=== PATIENT | male | born 1945 | race Caucasian/White ===

== ENCOUNTER 2019-09-30 13:40 | Emergency (ER) | payer MEDICARE ==
--- NOTE | 2019-09-30 15:43 | UC ---
Hip/Pelvis Pain - HPI Summary HPI Summary: 74-year-old male coming in with a chief complaint of left hip pain. Patient slipped and fell on the ice this morning. It pain right away in the left hip. Hip hurts anytime he tries to move it or tries to put weight on it. Been using crutches at home but still has quite a bit of pain. No complaint of weakness or numbness. No complaint any other injury. - History Of Current Complaint Chief Complaint: UCBackPain Stated Complaint: HIP INJURY Time Seen by Provider: 09/30/19 15:29 Pain Intensity: 2 - Allergies/Home Medications Allergies/Adverse Reactions: Allergies Allergy/AdvReac Type Severity Reaction Status Date / Time No Known Allergies Allergy Verified 09/30/19 14:15 Home Medications: Home Medications Cyanocobalamin (Vitamin B-12) [Vitamin B-12] 1 tab PO DAILY 09/30/19 [History Confirmed 09/30/19] Ibuprofen 1 tab PO ONCE PRN 09/30/19 [History Confirmed 09/30/19] PMH/Surg Hx/FS Hx/Imm Hx Previously Healthy: Yes - Surgical History Surgical History: Yes Surgery Procedure, Year, and Place: prostatectomy-as recorded by son ema. widsom teeth - Family History Known Family History: Positive: None - Social History Alcohol Use: Rare Substance Use Type: None Smoking Status (MU): Never Smoked Tobacco - Immunization History Most Recent Influenza Vaccination: 2014 Most Recent Tetanus Shot: unknown Most Recent Pneumonia Vaccination: 10/12/15 Review of Systems All Other Systems Reviewed And Are Negative: Yes Constitutional: Positive: Negative Skin: Positive: Negative Eyes: Positive: Negative ENT: Positive: Negative Respiratory: Positive: Negative Cardiovascular: Positive: Negative Gastrointestinal: Positive: Negative Motor: Positive: Other - SEE HPI Neurovascular: Positive: Negative Musculoskeletal: Positive: Other: - SEE HPI Neurological: Positive: Negative Psychological: Positive: Negative Is Patient Immunocompromised?: No Physical Exam Triage Information Reviewed: Yes Appearance: Well-Appearing, Well-Nourished, Pain Distress - MILD WITH LEFT HIP ROM AND EXAM Vital Signs: Initial Vital Signs Temp 98.5 F 09/30/19 14:08 Pulse 116 09/30/19 14:08 Resp 18 09/30/19 14:08 BP 135/84 09/30/19 14:08 Pulse Ox 95 09/30/19 14:08 Vital Signs Reviewed: Yes Eye Exam: Normal Eyes: Positive: Conjunctiva Clear Neck: Positive: Supple Respiratory: Positive: No respiratory distress Musculoskeletal: Positive: Other: - Left hip is tender to palpation. Patient has pain with range of motion of the left hip. No sensation of the left leg. Neurological: Positive: Alert Psychological: Positive: Age Appropriate Behavior Skin Exam: Normal Hip Injury Course/Dx - Course Course Of Treatment: Critical Care Clinical Nurse Specialist: Salvador Waller Daniel ([id number]) Stator Connector: ARNAUD ( ARNAUD) Report Date: 09/30/2019 14:49:00 Report Status: Final ====== Start of Report Content Patient Name: CANDI FARRIS Medical Record#: [id number] Ordering Physician: Maico Jose MD Acct.#: [id number] : Age: 74 Sex: M Location: [facility] Exam Date: 09/30/191448 ADM Status: REG ER Order Information: HIP LEFT 2 VIEWS AND PELVIS Accession Number: [id number] CPT: 64107 HISTORY: PAIN S/P FALL . COMPARISONS: None relevant available at the time of dictation. VIEWS: 3, Frontal view of the pelvis with frontal and frog-leg views of the left hip FINDINGS: BONE DENSITY: There is diffuse osteopenia. BONES: There is impacted and slightly displaced left subcapital femoral neck fracture. 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 ALIGNMENT: There is no dislocation. SOFT TISSUES: Unremarkable. OTHER FINDINGS: Degenerative changes are noted of the spine. IMPRESSION: SUBCAPITAL LEFT FEMORAL NECK FRACTURE. OSTEOPENIA. OSTEOPOROSIS ____ <Electronically signed by Salvador Waller MD in OV> 09/30/191535 Dictated By: Salvador Waller MD Dictated Date/Time: 09/30/191534 Transcribed Date/Time: 09/30/191534 Copy to: CC:Elena Ho MD; Maico Jose MD Imaging - [facility] Imaging - [facility] Imaging - [facility] [address] [facility] [address] [facility] [address] [place], [place] [id number] [place] [id number] [place] [id number] ph [phone]) ph ([phone]) ph ([phone]) End of Report Content I discussed the x-rays with the patient and his . Also discussed it with the orthopedist on-call Dr. Richardson. Dr. Richardson recommended evaluation emergency department to include a CT of the hip. I discussed all this with the patient and his they declined transport by ambulance they preferred to go by POV. - Differential Dx/Diagnosis Provider Diagnosis: Closed left hip fracture Discharge ED - Sign-Out/Discharge Documenting (check all that apply): Patient Departure All imaging exams completed and their final reports reviewed: Yes - Discharge Plan Condition: Stable Disposition: HOME-RECOMMEND TO ED Patient Education Materials: Hip Fracture (ED) Referrals: Elena Ho MD [Primary Care Provider] - Bernardo Richardson MD [Medical Doctor] - Additional Instructions: GO DIRECTLY TO THE EMERGENCY DEPARTMENT FOR FURTHER EVALUATION AND CARE OF YOUR LEFT HIP FRACTURE. DR RICHARDSON, ORTHOPEDICS, RECOMMENDED A CT OF YOUR LEFT HIP. - Billing Disposition and Condition Condition: STABLE Disposition: Home-Recommend to ED
[2019-09-30 16:40] VITALS: BP 132/84
== END 2019-09-30 16:27 | disposition home health service (06) ==
LOC: UCEAST 13:40
DX: S72.002A Fracture of unspecified part of neck of left femur, initial encounter for closed fracture (principal); W00.0XXA Fall on same level due to ice and snow, initial encounter; Y92.9 Unspecified place or not applicable
CPT/HCPCS: 99212; G0463

== ENCOUNTER 2019-09-30 17:34 | Inpatient (IN) | payer MEDICARE ==
--- NOTE | 2019-09-30 18:26 | ED ---
Lower Extremity - HPI Summary HPI Summary: 74 year old M presenting to [facility] from [facility] accompanied by family members complains of left hip pain rated 2/10 in severity after slipping on ice and falling on to his left hip while shoveling snow on a sloped icy driveway at 11:00 today 09/30. No trauma to the head, rib cage, or neck. Was able to stand up on his own after the fall but with difficulty. Needed help walking back into the house. No nausea/vomiting, neck pain, LOC, SOB, dizziness. Symptoms aggravated by movement, weight bearing, standing. Symptoms alleviated by nothing. Patient had x-ray done at [facility] which showed left femoral neck fracture. - History of Current Complaint Chief Complaint: EDHipPelvisInjury Stated Complaint: LEFT HIP PAIN PER PT Time Seen by Provider: 09/30/19 18:13 Hx Obtained From: Patient Mechanism Of Injury: Other - slipping on ice and falling on to his left hip Onset of Pain: Immediate Onset/Duration: Hours Severity Currently: Mild Pain Intensity: 2 Pain Scale Used: 0-10 Numeric Timing: Constant Associated Signs And Symptoms: Positive: Negative - nausea/vomiting, neck pain , LOC, SOB, dizziness Aggravating Factor(s): Standing, Movement, Weight Bearing Alleviating Factor(s): Nothing - Allergies/Home Medications Allergies/Adverse Reactions: Allergies Allergy/AdvReac Type Severity Reaction Status Date / Time No Known Allergies Allergy Verified 09/30/19 17:37 PMH/Surg Hx/FS Hx/Imm Hx Endocrine/Hematology History: Denies: Hx Diabetes, Hx Thyroid Disease Cardiovascular History: Denies: Hx Congestive Heart Failure, Hx Hypertension, Hx Pacemaker/ICD Respiratory History: Denies: Hx Asthma, Hx Chronic Obstructive Pulmonary Disease (COPD) GI History: Denies: Hx Ulcer History: Denies: Hx Renal Disease Sensory History: Reports: Hx Contacts or Glasses Denies: Hx Hearing Aid Opthamlomology History: Reports: Hx Contacts or Glasses Neurological History: Reports: Other Neuro Impairments/Disorders - syncopy 10-08 Psychiatric History: Denies: Hx Panic Disorder - Cancer History Cancer Type, Location and Year: prostate - Surgical History Surgery Procedure, Year, and Place: prostatectomy-as recorded by horace boo. widsom teeth - Immunization History Date of Tetanus Vaccine: Unk Date of Influenza Vaccine: Fall 2014 Infectious Disease History: No Infectious Disease History: Denies: Hx Hepatitis, Hx Human Immunodeficiency Virus (HIV), Traveled Outside the [place] in Last 30 Days - Family History Known Family History: Negative: Diabetes - Social History Alcohol Use: Rare Substance Use Type: Reports: None Hx Tobacco Use: No Smoking Status (MU): Never Smoked Tobacco Review of Systems Negative: Shortness Of Breath Negative: Vomiting, Nausea Musculoskeletal: Negative - neck pain Positive: Other - left hip pain Neurological: Negative - LOC, dizziness All Other Systems Reviewed And Are Negative: Yes Physical Exam - Summary Physical Exam Summary: Constitutional: Well-developed, Well-nourished, Alert. (-) Distressed Skin: Warm, Dry HENT: Normocephalic; Atraumatic Eyes: Conjunctiva normal Neck: Musculoskeletal ROM normal neck. (-) JVD, (-) Stridor, (-) Tracheal deviation Cardio: Rhythm regular, rate normal, Heart sounds normal; Intact distal pulses; The pedal pulses are 2+ and symmetric. Radial pulses are 2+ and symmetric. (-) Murmur Pulmonary/Chest wall: Effort normal. (-) Respiratory distress, (-) Wheezes, (-) Rales Abd: Soft, (-) tenderness, (-) Distension, (-) Guarding, (-) Rebound Musculoskeletal: Upper extremities are normal, C-spine is normal. Palpation of pelvis is non-tender, no pelvic instability. There is mild pain in anterior superior thigh. There is pain with internal/external rotation of left hip. He is neurovascularly in tact with good bilateral posterior tibular pulses and normal capillary refill. Lymph: (-) Cervical adenopathy Neuro: Alert, Oriented x3 Psych: Mood and affect Normal Triage Information Reviewed: Yes Vital Signs On Initial Exam: Initial Vitals Temp Pulse Resp BP Pulse Ox 98.3 F 113 16 152/82 97 09/30/19 17:35 09/30/19 17:35 09/30/19 17:35 09/30/19 17:35 09/30/19 17:35 Vital Signs Reviewed: Yes Procedures - Sedation Patient Received Moderate/Deep Sedation with Procedure: No Diagnostics - Vital Signs Vital Signs Temp Pulse Resp BP Pulse Ox 09/30/19 17:35 98.3 F 113 16 152/82 97 - Laboratory Result Diagrams: 09/30/19 18:50 09/30/19 19:55 Lab Statement: Any lab studies that have been ordered have been reviewed, and results considered in the medical decision making process. - Radiology CXR Radiology Interpretation Completed By: ED Physician Summary of Radiographic Findings: Right pleural effusion. Otherwise, no obvious acute process. Pending official report. - CT Pelvis CT Interpretation Completed By: Radiologist Summary of CT Findings: 1. Acute traumatic left femoral neck fracture. 2. Left inguinal hernia. No strangulation. ED physician has reviewed this report. Lower Extremity Course/Dx - Course Course Of Treatment: 74 year old M from [facility] complains of left hip pain after slipping on ice and falling on to his left hip while shoveling snow on a sloped icy driveway at 11:00 today 09/30. No trauma to the head, rib cage, or neck. Had x-ray done at [facility] which showed left femoral neck fracture. Physical exam findings: Upper extremities are normal, C-spine is normal. Palpation of pelvis is non-tender, no pelvic instability. There is mild pain in anterior superior thigh. There is pain with internal/external rotation of left hip. He is neurovascularly in tact with good bilateral posterior tibular pulses and normal capillary refill. Bloodwork without any significant abnormalities except for WBC 12.2, RBC 5.73, platelet count 125, MPV 7.1, absolute neuts 10.5, absolute lymphs 0.9, monos 0.9, BUN/creatinine 20.4. CXR shows right pleural effusion, otherwise no obvious acute process. Pelvis CT shows, per radiologist: 1. Acute traumatic left femoral neck fracture. 2. Left inguinal hernia. No strangulation. Patient declined pain medications when offered. Spoke with Dr. Castillo, hospitalist, who agrees to admit patient. The patient will be admitted to the hospitalist. Dx left hip fracture. - Diagnoses Provider Diagnoses: Hip fracture, left - Physician Notifications Discussed Care Of Patient With: Chantelle Castillo Time Discussed With Above Provider: 19:00 Instructed by Provider To: Other - Dr. Castillo, hospitalist, agrees to admit patient Discharge ED - Sign-Out/Discharge Documenting (check all that apply): Patient Departure - ADMIT - Discharge Plan Condition: Stable Disposition: ADMITTED TO [facility] - Billing Disposition and Condition Condition: STABLE Disposition: Admitted to [facility] - Attestation Statements Document Initiated by Scribe: Yes Documenting Scribe: Doris Torres Provider For Whom Scribe is Documenting (Include Credential): Renée Slade MD Scribe Attestation: I, Doris Torres, scribed for Renée Haas MD on 09/30/19 at 6385. Scribe Documentation Reviewed: Yes Provider Attestation: The documentation as recorded by the scribe, Doris Torres accurately reflects the service I personally performed and the decisions made by me, Renée Haas MD Status of Scribe Document: Viewed
[2019-09-30 18:57] LABS: ABS Lymphocytes 0.9 10^3/ul (1.0-4.8); ABS Monocytes 0.9 10^3/ul (0-0.8); ABS Neutrophils 10.5 10^3/ul (1.5-7.7); Eosinophil % 0.1 %; Hematocrit 51 % (42-52); Hemoglobin 16.6 g/dL (14.0-18.0); Lymphocyte % 7.1 %; Mean Corpuscular HGB Conc 33 g/dL (31-36); Mean Corpuscular Hemoglobin 29 pg (27-31); Mean Corpuscular Volume 88 fL (80-94); Mean Platelet Volume 7.1 fL (7.4-10.4); Nucleated Red Blood Cells % 0.1; Platelet Count 125 10^3/uL (150-450); Red Blood Count 5.73 10^6 /uL (4.18-5.48); Red Cell Distribution Width 14 % (10-15); White Blood Count 12.2 10^3/uL (3.5-10.8)
[2019-09-30 19:02] LABS: INR 0.94 (0.82-1.09)
[2019-09-30 19:12] LABS: ALT 24 U/L (7-52); Albumin 4.3 g/dL (3.2-5.2); Albumin/Globulin Ratio 1.4 (1-3); Alkaline Phosphatase 81 U/L (34-104); BUN/Creatinine Ratio 20.4 (8-20); Blood Urea Nitrogen 19 mg/dL (6-24); CO2 Carbon Dioxide 26 mmol/L (22-32); Calcium 9.8 mg/dL (8.6-10.3); Chloride 102 mmol/L (101-111); EGFR African American 96.1 (>60); EGFR Non-African American 79.4 (>60); Globulin 3.1 g/dL (2-4); Glucose 95 mg/dL (70-100); Sodium 136 mmol/L (135-145); Total Protein 7.4 g/dL (6.4-8.9)
[2019-09-30 19:40] LABS: Anion Gap 8 mmol/L (2-11)
[2019-09-30] MEDS ORDERED: Morphine INJ* 2 MG/ML 1 ML SYRINGE (TWO MG - NEW SYRINGE VERSION) IV PRN (20:33)
[2019-09-30] MEDS ORDERED: Polyethylene Glycol 3350* 17 GM PACKET PO PRN (20:42)
[2019-09-30] MEDS ORDERED: Senna TAB 8.6 mg* TAB PO PRN (20:42)
[2019-09-30] MEDS ORDERED: Magnesium Hydroxide LIQ* 30 ML UDC PO PRN (20:42)
[2019-09-30] MEDS ORDERED: Heparin VIAL(*) 5000 UNITS/ML VIAL (FIVE THOUSAND) SUBCUT SCH (22:00)
--- NOTE | 2019-09-30 22:10 | HP ---
HISTORY AND PHYSICAL: DATE OF ADMISSION: 09/30/19. PRIMARY CARE PROVIDER: Dr. Ho. ATTENDING PHYSICIAN WHILE IN THE HOSPITAL: Dr. Concepción Mcdonough * (dictated by Natalie Kay, JACK). HISTORY OF PRESENT ILLNESS: Mr. Wallace is a 74-year-old male with past medical history significant for history of prostate cancer in 2005, status post radical prostatectomy and allergic rhinitis, who presented to the emergency room after a mechanical fall. The patient reports that he was clearing snow out of his driveway and was going down the slope where he hit an icy area in the driveway. He reports that he lost his footing, slipping on the ice, landing on his left hip. The patient reported that he had immediate pain in his left hip after the fall. He does report that he used a broom as a crutch to walk back to his house. Due to the pain in his left hip, he presented to [facility] for further evaluation. At [facility], they did a hip x- ray, which showed a subcapital left femoral neck fracture. Due to these findings, the patient was sent to the emergency room for further evaluation and admission for treatment. While in the emergency room, the patient had routine lab work drawn. He was found to have mild leukocytosis with white count of 12.2. He has a platelet count of 125,000. Due to his left hip fracture, Hospital Medicine was asked to see and evaluate for admission. PAST MEDICAL HISTORY: Significant for: 1. History of prostate cancer. 2. Allergic rhinitis. 3. History of cellulitis to the right leg in 2005. 4. History of lumbar disk disease. PAST SURGICAL HISTORY: 1. [place] teeth. 2. Radical prostatectomy. HOME MEDICATIONS: 1. Vitamin B12 1000 mcg p.o. daily. 2. Multivitamin 1 tablet p.o. daily. 3. Xyzal 5 mg p.o. daily. 4. Fluticasone 2 sprays both nares daily. 5. Vitamin D 1000 units p.o. daily. 6. Astepro 1 spray nares b.i.d. ALLERGIES: LEVAQUIN and SULFA. FAMILY HISTORY: Mother at the age of 77, has a presumed OR. No reported history of diabetes or cancer within the family. Father lived to be 98. SOCIAL HISTORY: The patient denies any tobacco or illicit drug use. He does report rare alcohol use. 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 He is . He lives with his . Surrogate decision maker in the event he is unable to make his own decisions is his . He is a full code. REVIEW OF SYSTEMS: The patient denies any fever, chills, unintended weight loss , chest pain, or edema. Denies any cough, hemoptysis, shortness of breath. No nausea, vomiting, diarrhea, or abdominal pain. Denies any gross hematuria or dysuria. Denies any focal weakness, sensory loss, visual complaints, dysphagia. He does complain of left hip pain. Denies LOC, head injury, neck or back injury or pain. Denied any dizziness of lightheadedness prior to fall. No rashes, lesions, open sores. Denies any psychosis or anxiety. PHYSICAL EXAMINATION GENERAL: At this time, Rodrigo is a 74-year-old male. He is alert and oriented , resting on the stretcher in the emergency room. He is in no acute distress. VITAL SIGNS: Blood pressure 152/82, heart rate is 106, respirations are 16, O2 saturation 97%, temperature 98.3. HEENT: Head is atraumatic, normocephalic. Eyes: EOMs are intact. Sclerae anicteric and not pale. Pupils equal and reactive light. Oral mucosa appeared to be moist. NECK: Supple. no c-spine tenderness with palpation. LUNGS: Clear to auscultation bilaterally. No wheezes, rales or rhonchi. CARDIAC: S1, S2. Regular rate and rhythm. No murmurs, rubs, or gallops. He is tachycardic. ABDOMEN: Soft and nontender. Bowel sounds are present x4. EXTREMITIES: He is able to move all 4 extremities. Sensation is intact to lower extremities. Pedal pulses are +2 bilaterally. There is no clubbing or cyanosis. NEUROLOGIC: He is awake, alert, oriented x3. Speech is clear. Thought process is intact. There are no gross focal deficits. SKIN: Intact. LABORATORY DATA AND DIAGNOSTIC STUDIES: WBCs are 12.2, RBCs 5.73, hemoglobin 16.6, hematocrit is 51, platelet count 125,000. INR was 0.94. Sodium 136, potassium pending, chloride 102, carbon dioxide 26, anion gap 8, BUN is 19, creatinine 0.93, glucose is 95. AST is pending. ALTs are 24. Alkaline phosphatase is 81. Calcium is 9.8. Urine is currently pending. Hip x-ray that showed subcapital left hip fracture. ASSESSMENT AND PLAN: Mr. Wallace is a 74-year-old male with history of prostate cancer, status post prostatectomy and allergic rhinitis, who presented to the emergency room after a fall at home sustaining a left hip fracture. He will be admitted inpatient for: 1. Left hip fracture. This is related to a mechanical fall, slipping on ice. Management per Orthopedics. I will give the patient morphine q.4 hours as needed for severe pain. He can have oxycodone 1 tablet every 4 hours as needed for moderate pain and Tylenol as needed for mild pain. He will be placed on bed rest. I will place him on SCDs. I will place him on normal saline 75 cc an hour after the patient is n.p.o. I have contacted Dr. Gonsalves from Orthopedics, who will see the patient in consultation in the a.m. 2. Allergic rhinitis. The patient will continue fluticasone as previously prescribed. 3. DVT prophylaxis. I will place him on SCDs. If the patient does not go to surgery tomorrow, we can place him on heparin subcu until surgery. 4. FEN. He will have a regular diet and be n.p.o. after midnight. 5. CODE STATUS: full code TIME SPENT: Time spent on this admission was 60 minutes, greater than half that time was spent at the bedside reviewing events leading thus far to his hospitalization, performing physical exam, and reviewing my plan of care. I have discussed this with my attending, Dr. Concepción Mcdonough; she is in agreement with my plan. NATALIE KAY, BODY ART TECHNICIAN [id number]/[facility] #: [id number] ZULEYMA
[2019-09-30] MEDS: Docusate CAP* 100 MG PO SCH (22:57)
[2019-09-30] MEDS: oxyCODONE/Acetamin 5/325 MG* TAB PO PRN (22:57)
[2019-09-30 23:05] LABS: Potassium Redraw 3.9 mmol/L (3.5-5.0)
[2019-10-01] MEDS: oxyCODONE/Acetamin 5/325 MG* TAB PO PRN ×3 (03:55→12:52)
[2019-10-01] MEDS: NS 0.9% 1000 ML** 1,000 ML IV SCH ×2 (04:56→18:23)
[2019-10-01] MEDS ORDERED: Ondansetron ODT TAB* 4 MG PO ONE (06:00)
[2019-10-01] MEDS ORDERED: Dexamethasone TAB* 4 MG PO ONE (06:00)
[2019-10-01] MEDS ORDERED: Famotidine IV* 10 MG/ML 2 ML (20 mg) IV ONE (06:00)
[2019-10-01 06:04] LABS: ABS Lymphocytes 1.7 10^3/ul (1.0-4.8); ABS Monocytes 1.2 10^3/ul (0-0.8); ABS Neutrophils 8.8 10^3/ul (1.5-7.7); Eosinophil % 0.3 %; Hematocrit 45 % (42-52); Hemoglobin 15.1 g/dL (14.0-18.0); Lymphocyte % 14.6 %; Mean Corpuscular HGB Conc 34 g/dL (31-36); Mean Corpuscular Hemoglobin 29 pg (27-31); Mean Corpuscular Volume 86 fL (80-94); Mean Platelet Volume 7.2 fL (7.4-10.4); Platelet Count 166 10^3/uL (150-450); Red Blood Count 5.22 10^6 /uL (4.18-5.48); Red Cell Distribution Width 13 % (10-15); White Blood Count 11.8 10^3/uL (3.5-10.8)
[2019-10-01 06:15] LABS: BUN/Creatinine Ratio 17.6 (8-20); EGFR African American 98.5 (>60); EGFR Non-African American 81.4 (>60); Potassium 3.9 mmol/L (3.5-5.0)
[2019-10-01 06:21] LABS: INR 1.1 (0.82-1.09)
[2019-10-01 06:46] LABS: TSH (Thyroid Stimulating Horm) 3.07 mcIU/mL (0.34-5.60)
[2019-10-01] MEDS: Docusate CAP* 100 MG PO SCH (08:00)
[2019-10-01] MEDS: Fluticasone NASAL SPRAY 50MCG* 16 gm SPRAY BTL BOTH NARES SCH (08:01)
--- NOTE | 2019-10-01 08:19 | CONSULT ---
Consult Consult: Dictated note to follow. Community ambulator, active, without baseline hip pain with mechanical fall and minimally displaced, impacted L femoral neck fracture. Discussed possible treatments, including cannulated screws and total hip arthroplasty. We decided on cannulated screws. To the OR for ORIF with cannulated screws left hip femoral neck. NPO. Optimized by medicine. Surgery was hoped for today, although there may be limited OR room availability which may force surgery to be delayed until tomorrow.
--- NOTE | 2019-10-01 11:09 | PN ---
Subjective Date of Service: 10/01/19 Interval History: Patient reports unable to get comfortable in bed. Denies chest pain or shortness of breath. Denies fever or chills denies abd pain n/v/d. Surgery pending for today EKG - reviewed showed sinus tachycardia rate 100 , no ST elevation or depressions. RCRI - Patient has a score of 0 giving him a 3.9% risk at 30 days of , cardiac arrest or ND. The patient is able to climb stair and shovel snow without the development of chest pain or shortness of breath. The patient does not need any further workup prior to surgery. The patient is an acceptable candidate for surgery at this time. Family History: Unchanged from Admission Social History: Unchanged from Admission Past Medical History: Unchanged from Admission Objective Active Medications: Acetaminophen (Tylenol Tab*) 650 mg PO Q4H PRN PRN Reason: MILD PAIN or TEMP > 100.4 Docusate Sodium (Colace Cap*) 100 mg PO BID [facility] Last Admin: 10/01/19 08:00 Dose: 100 mg Fluticasone Propionate (Flonase Nasal [place] 50mcg*) 2 spray BOTH NARES DAILY [facility] Last Admin: 10/01/19 08:01 Dose: 2 spray Sodium Chloride (Ns 0.9% 1000 Ml) 1,000 mls @ 75 mls/hr IV PER RATE [facility] Last Admin: 10/01/19 04:56 Dose: 75 mls/hr Magnesium Hydroxide (Milk Of Magnesia Liq*) 30 ml PO BID PRN PRN Reason: CONSTIPATION Morphine Sulfate (Morphine Inj (Syringe))*) 2 mg IV Q4H PRN PRN Reason: PAIN - SEVERE Oxycodone/Acetaminophen (Percocet 5/325 Tab*) 1 tab PO Q4H PRN PRN Reason: PAIN - MODERATE Last Admin: 10/01/19 08:00 Dose: 1 tab Polyethylene Glycol/Electrolytes (Miralax*) 17 gm PO DAILY PRN PRN Reason: CONSTIPATION Senna (Senokot 8.6 Mg Tab*) 1 tab PO BEDTIME PRN PRN Reason: CONSTIPATION Vital Signs - 8 hr 10/01/19 10/01/19 10/01/19 03:55 07:48 07:51 Temperature 98.4 F Pulse Rate 88 Respiratory 18 16 16 Rate Blood Pressure 124/83 (mmHg) O2 Sat by Pulse 93 Oximetry 10/01/19 10/01/19 10/01/19 08:00 08:30 10:44 Temperature Pulse Rate Respiratory 20 20 18 Rate Blood Pressure (mmHg) O2 Sat by Pulse Oximetry Oxygen Devices in Use Now: None Appearance: Appear comfortable resting in bed , no acute distess Ears/Nose/Mouth/Throat: NL Teeth, Lips, Gums, Mucous Membranes Moist Neck: NL Appearance and Movements; NL JVP, Trachea Midline Respiratory: Symmetrical Chest Expansion and Respiratory Effort Cardiovascular: NL Sounds; No Murmurs; No JVD, No Edema Abdominal: NL Sounds; No Tenderness; No Distention Extremities: No Edema, No Clubbing, Cyanosis Skin: No Rash or Ulcers Neurological: Alert and Oriented x 3, NL Muscle Strength and Tone Nutrition: - - NPO for surgery Result Diagrams: 10/01/19 05:26 10/01/19 05:26 Assess/Plan/Problems-Billing Assessment: Mr. Wallace is a 74 y.o male with no significant past medical history who presented to the ER with left hip pain after a mechanical fall found to have a fractured left hip - Patient Problems (1) Hip fracture, left Current Visit: Yes Status: Acute Code(s): S72.002A - FRACTURE OF UNSP PART OF NECK OF LEFT FEMUR, INIT SNOMED Code(s): 302637131 Comment: possible OR today for pinning - DVT prop per ortho - bowel medicaitons - pain managment - PT/OT per orthopedics (2) Allergic rhinitis Current Visit: Yes Status: Acute Code(s): J30.9 - ALLERGIC RHINITIS, UNSPECIFIED SNOMED Code(s): 71629978 Comment: continue flonase (3) DVT prophylaxis Current Visit: Yes Status: Acute Code(s): Z29.9 - ENCOUNTER FOR PROPHYLACTIC MEASURES, UNSPECIFIED SNOMED Code(s): 376015548 Comment: scd's (4) Full code status Current Visit: Yes Status: Acute Code(s): Z78.9 - OTHER SPECIFIED HEALTH STATUS SNOMED Code(s): 601365549 Status and Disposition: inpatient - pending surgery
[2019-10-01] MEDS ORDERED: Buffered Lidocaine 1% SYRIN* 1 ML/SYRINGE INTRADERM ONE (13:40)
--- NOTE | 2019-10-01 14:24 | CONS ---
CONSULTATION NOTE: DATE OF CONSULT: 10/01/19 REASON FOR CONSULT: Left hip fracture. HISTORY OF PRESENT ILLNESS: The patient is a 74-year-old man, active, community ambulator without as sist, who lives at home with his , who presented first to convenient care and then the emergency room yesterday, 09/30/19 with a left hip fracture. The patient does not have any left hip pain at baseline, although he has noted getting some stiffness in bilateral hips through the years. The patient is very active. 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 Yesterday, the patient was clearing snow out of his driveway. He was walking on a slope, hit some ic e, lost his footing, slipped and fell. He landed on his left hip. He had pain immediately about the left hip. He was able to get up, used his broom as a crutch and walked into the house. The patient went to [facility] where hip x-rays demonstrated a left femoral neck fracture. I wa s contacted as I was on-call. I instructed the patient to go to [facility]'s Emergency Room. A CT scan wou ld be required to assess fracture site displacement. Emergency room then contacted me last night when the patient was there and everyone was comfortable w ith me seeing the patient this morning. He was admitted to the hospitalist service. He was optimize d and cleared for surgery last night. He was made nothing to eat after midnight. The patient states he has much left hip pain now. He is not moving the left hip or minimally moving it to minimize his pain while in bed. He has been taking narcotics for pain control. The patient was noted in the emergency room to have a white blood cell count of 12.2. PAST MEDICAL HISTORY: History of prostate cancer, allergic rhinitis, history of cellulitis of right leg in 2005, history of lumbar spine degenerative disk disease. PAST SURGICAL HISTORY: [place] teeth extraction, radical prostatectomy. MEDICATIONS: 1. Vitamin B12. 2. Multivitamin. 3. Xyzal. 4. Fluticasone. 5. Vitamin D. 6. Astepro. ALLERGIES: LEVAQUIN and SULFA. FAMILY HISTORY: Noncontributory. 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 He is . No baseline left hip pain. No assist device. Lives with his . His surrogate decision maker in the event he is unable to make his own decisions is his . Full code. REVIEW OF SYSTEMS: The patient describes left hip pain. A 14-point review of systems was otherwise negative. PHYSICAL EXAM: No acute distress. Nontoxic appearing. Alert and oriented. Appropriate mood and aff ect, appropriate dress and hygiene. Vital signs this morning about the time of my visit with the patient were body temperature 98.4 degre es Fahrenheit, pulse 88, blood pressure 124/83, oxygen saturation 93% on room air, and respiratory ra te 16. Left lower extremity exam reveals some mild soft tissue swelling about the left hip. Pain with any p assive range of motion of the left hip, so I minimized this. Neurovascularly intact distally with the patient able to flex and extend his toes and foot, full sensation distally, and the foot was warm an d well perfused. DIAGNOSTIC STUDIES/LAB DATA: White blood cell count this morning was 11.8 with a neutrophil percenta ge of 74.5%. White blood cell count yesterday had been 12.2. INR today is 1.1. Chemistries were nor mal. I requested a urinalysis, but I do not see that has yet returned. Imaging: X-rays of the left hip obtained yesterday in [facility] were reviewed by me. These sh ow a fracture of the left femoral neck. There is some minimal displacement and impaction noted. I m easured there to be on x-ray approximately 3 mm of medialization distal to the fracture site. Some c lear valgus impaction. No clear anterior apex angulation or other deformity present on other images. I reviewed the CT scan obtained yesterday at [facility]. There is no sagittal plane angular deformity which was nice to see. There is some impaction visible clearly. There is just a tiniest amount of step-of f. I again measured it at about 3 mm of medial translation distally. Excellent reduction in the axi al and sagittal slices, but just a little bit of displacement in the coronal slices. ASSESSMENT: Left hip fracture, femoral neck, minimally displaced. PLAN: 1. I discussed with the patient the anatomy of his fracture as well as hip fractures in general. 2. I spoke about possible surgical options for his injury. This included cannulated screws, bipolar hemiarthroplasty, or total hip arthroplasty. I told him that his best options were either cannulate d screw fixation or total hip arthroplasty. I did not think hemiarthroplasty would be a good option given his high activity level. 3. I spoke at length about the pros and cons of cannulated screw fixation as well as total hip arthr oplasty. I also spoke about postoperative recovery process and restrictions. 4. The patient's preference was for cannulated screw fixation. 5. 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 He has just a tiniest amount of displacement. I believe he will have excellent scre w fixation with surgery. However, there is risk of nonhealing or avascular necrosis. The patient and I discussed risks and potential complications of surgery, both surgical and medical possible complic ations. 6. To the operating room for open reduction and internal fixation left hip femoral neck with cannula dario screws. 7. The patient will be maintained n.p.o. He has been optimized and cleared by the medicine service. We will hopefully await a urinalysis. 8. Tentatively, the patient will go to the operating room this evening. There appears to be a logja m in the operating room, so if the operation will be delayed until a time late tonight, I would certa inly consider delaying surgery until tomorrow. [id number]/[facility] #: [id number]
[2019-10-01 17:40] LABS: Urine Appearance Cloudy; Urine Bilirubin Negative (Negative); Urine Blood Negative (Negative); Urine Color Yellow; Urine Glucose Negative (Negative); Urine Ketones Trace (Negative); Urine Nitrite Negative (Negative); Urine Protein Negative (Negative); Urine Specific Gravity 1.018 (1.010-1.030); Urine Urobilinogen Negative (Negative)
[2019-10-01] MEDS ORDERED: KETAMINE HCL* 50 MG/ML 10 ML VIAL ONE (19:15)
[2019-10-01] MEDS ORDERED: Midazolam* 1 MG/ML 5 ML VIAL (5 MG) ONE (19:15)
[2019-10-01] MEDS ORDERED: fentaNYL* 50 MCG/ML 2 ML VIAL (100 MCG VIAL) ONE (19:15)
[2019-10-01] MEDS ORDERED: Dexamethasone TAB* 4 MG ONE (19:29)
[2019-10-01] MEDS ORDERED: Ondansetron ODT TAB* 4 MG ONE (19:29)
[2019-10-01] MEDS ORDERED: Famotidine IV* 10 MG/ML 2 ML (20 mg) ONE (19:29)
[2019-10-01] MEDS ORDERED: ceFAZolin 2 GM in NS PREMIX(*) 2 GM/100 ML BAG IVPB ONE (19:56)
[2019-10-01] MEDS ORDERED: Bupivacaine 0.25% EPI 200,000* 30 ML SDV ONE (20:46)
[2019-10-01] MEDS ORDERED: Lactated Ringers 1000 ML Bag* 1,000 ML IV SCH (21:00)
[2019-10-01] MEDS ORDERED: HYDROmorphone INJ1* 1 MG/ML SYRINGE ONE (21:37)
[2019-10-01] MEDS ORDERED: DiMENhydriNATE IV* 50 MG/ML VIAL IV PUSH PRN (21:47)
[2019-10-01] MEDS ORDERED: Naloxone* 0.4 MG/ML 1 ML VIAL IV PRN (21:47)
[2019-10-01] MEDS ORDERED: PROCHLORPERAZINE INJ 5 MG/ML 2 ML VIAL IV PRN (21:47)
[2019-10-01] MEDS ORDERED: HYDROmorphone INJ1* 1 MG/ML SYRINGE IV PRN (21:47)
[2019-10-01] MEDS ORDERED: fentaNYL* 50 MCG/ML 2 ML VIAL (100 MCG VIAL) IV PRN (21:47)
[2019-10-01] MEDS ORDERED: oxyCODONE/Acetamin 5/325 MG* TAB PO PRN (21:47)
[2019-10-01] MEDS ORDERED: EPHEDrine (Pressors)* 50 MG/ML VIAL ONE (22:09)
[2019-10-01] MEDS ORDERED: Ketorolac INJ* 30 MG/ML 1 ML VIAL ONE (22:09)
[2019-10-01] MEDS ORDERED: Propofol* 10 MG/ML 20 ML BTL ONE (22:09)
[2019-10-01] MEDS ORDERED: Lidocaine 2% PF * 5 ML VIAL ONE (22:10)
[2019-10-01] MEDS ORDERED: Phenylephrine 10 MG/ML VIAL* 1 ML VIAL ONE (22:10)
[2019-10-02] MEDS: Docusate CAP* 100 MG PO SCH ×3 (01:49→21:03)
[2019-10-02] MEDS: ceFAZolin 1 GM* X 3 DOSES POST-OP Q8H (AddVan) IVPB SCH ×6 (05:05→21:03)
[2019-10-02] MEDS ORDERED: Famotidine IV* 10 MG/ML 2 ML (20 mg) IV ONE (06:00)
[2019-10-02] MEDS ORDERED: Ondansetron ODT TAB* 4 MG PO ONE (06:00)
[2019-10-02] MEDS ORDERED: Lactated Ringers 1000 ML Bag* 1,000 ML IV SCH (06:00)
[2019-10-02] MEDS ORDERED: Dexamethasone TAB* 4 MG PO ONE (06:00)
[2019-10-02 06:11] LABS: ABS Lymphocytes 0.7 10^3/ul (1.0-4.8); ABS Monocytes 0.5 10^3/ul (0-0.8); ABS Neutrophils 8.1 10^3/ul (1.5-7.7); Hematocrit 44 % (42-52); Hemoglobin 14.8 g/dL (14.0-18.0); Lymphocyte % 7.5 %; Mean Corpuscular HGB Conc 33 g/dL (31-36); Mean Corpuscular Hemoglobin 29 pg (27-31); Mean Corpuscular Volume 86 fL (80-94); Mean Platelet Volume 7.1 fL (7.4-10.4); Platelet Count 156 10^3/uL (150-450); Red Blood Count 5.12 10^6 /uL (4.18-5.48); Red Cell Distribution Width 14 % (10-15); White Blood Count 9.4 10^3/uL (3.5-10.8)
[2019-10-02 06:25] LABS: BUN/Creatinine Ratio 18.5 (8-20); Calcium 8.5 mg/dL (8.6-10.3); EGFR African American 97.3 (>60); EGFR Non-African American 80.4 (>60); Potassium 4.3 mmol/L (3.5-5.0)
[2019-10-02] MEDS: Fluticasone NASAL SPRAY 50MCG* 16 gm SPRAY BTL BOTH NARES SCH (08:58)
--- NOTE | 2019-10-02 09:42 | PN ---
Subjective Date of Service: 10/02/19 Interval History: Patient seen and examined at bedside. Mr. Wallace is a 74 yo male, admitted for surgical repair of left hip fracture following mechanical fall. He is OOB to chair, eating breakfast. Reports he slept well, denies pain, reports good pain control. Denies fever/chills, CP, SOB , abd pain, n/v. is also at bedside. Family History: Unchanged from Admission Social History: Unchanged from Admission Past Medical History: Unchanged from Admission Objective Active Medications: Acetaminophen (Tylenol Tab*) 650 mg PO Q4H PRN PRN Reason: MILD PAIN or TEMP > 100.4 Docusate Sodium (Colace Cap*) 100 mg PO BID [facility] Last Admin: 10/02/19 08:58 Dose: 100 mg Enoxaparin Sodium (Lovenox(*)) 40 mg SUBCUT DAILY [facility] Fluticasone Propionate (Flonase Nasal [place] 50mcg*) 2 spray BOTH NARES DAILY [facility] Last Admin: 10/02/19 08:58 Dose: 2 spray Lactated Ringer's (Lactated Ringers 1000 Ml Bag*) 1,000 mls @ 100 mls/hr IV PER RATE [facility] Last Admin: 10/02/19 03:10 Dose: 100 mls/hr Cefazolin Sodium 1 gm/ Sodium (Chloride) 50 mls @ 200 mls/hr IVPB Q8H [facility] Stop: 10/02/19 21:14 Last Admin: 10/02/19 05:05 Dose: 200 mls/hr Magnesium Hydroxide (Milk Of Magnesia Liq*) 30 ml PO BID PRN PRN Reason: CONSTIPATION Morphine Sulfate (Morphine Inj (Syringe))*) 2 mg IV Q4H PRN PRN Reason: PAIN - SEVERE Oxycodone/Acetaminophen (Percocet 5/325 Tab*) 1 tab PO Q4H PRN PRN Reason: PAIN - MODERATE Last Admin: 10/01/19 12:52 Dose: 1 tab Polyethylene Glycol/Electrolytes (Miralax*) 17 gm PO DAILY PRN PRN Reason: CONSTIPATION Last Admin: 10/02/19 08:56 Dose: 17 gm Senna (Senokot 8.6 Mg Tab*) 1 tab PO BEDTIME PRN PRN Reason: CONSTIPATION Vital Signs - 8 hr 10/02/19 10/02/19 10/02/19 03:57 08:08 09:00 Temperature 97.3 F 98.0 F Pulse Rate 87 79 Respiratory 16 16 16 Rate Blood Pressure 122/68 129/72 (mmHg) O2 Sat by Pulse 97 97 Oximetry Oxygen Devices in Use Now: Nasal Cannula Eyes: No Scleral Icterus, PERRLA Ears/Nose/Mouth/Throat: Clear Oropharnyx, Mucous Membranes Moist Neck: NL Appearance and Movements; NL JVP Respiratory: Symmetrical Chest Expansion and Respiratory Effort, Clear to Auscultation Cardiovascular: NL Sounds; No Murmurs; No JVD, RRR Abdominal: NL Sounds; No Tenderness; No Distention Extremities: No Edema, No Clubbing, Cyanosis, - - DP 2+ Skin: No Rash or Ulcers Neurological: Alert and Oriented x 3, NL Muscle Strength and Tone Lines/Tubes/Other Access: Clean, Dry and Intact Peripheral IV Nutrition: Taking PO's Result Diagrams: 10/02/19 05:35 10/02/19 05:35 Assess/Plan/Problems-Billing Assessment: Mr. Wallace is a 74 y.o male with no significant past medical history who presented to the ER on 09/30/17 with left hip pain after a mechanical fall, found to have a left femoral neck fracture. - Patient Problems (1) Hip fracture, left Code(s): S72.002A - FRACTURE OF UNSP PART OF NECK OF LEFT FEMUR, INIT Comment : POD #1 s/p surgical repair, management per ortho Continue with pain management, bowel regimen PT/OT PMRU referral (2) Allergic rhinitis Code(s): J30.9 - ALLERGIC RHINITIS, UNSPECIFIED Comment: Continue Flonase. (3) DVT prophylaxis Code(s): Z29.9 - ENCOUNTER FOR PROPHYLACTIC MEASURES, UNSPECIFIED Comment: Per ortho SCDs and SQ Lovenox (4) Full code status Code(s): Z78.9 - OTHER SPECIFIED HEALTH STATUS Status and Disposition: Inpatient. PMRU referral pending.
[2019-10-02] MEDS ORDERED: Enoxaparin(*) 40 MG/0.4 ML SYR SUBCUT SCH (12:00)
--- NOTE | 2019-10-02 13:32 | PN ---
Progress Note - Progress Note Date of Service: 10/02/19 SOAP: Subjective: [Pt was seen this morning. He was sitting in chair. States that he is doing well. Pain is well controlled. PT went okay with inability to do stairs. He states that he would like to ideally go home but has been thinking about rehab, . ] Objective: [General: Pt is alert and oriented x3. NAD MSK. Dressing is c/d/i. +df/pf. 2+ DP pulse. NVI. Calf soft and non tender. ] Vital Signs Temp 98.5 F 10/02/19 12:04 Pulse 90 10/02/19 12:04 Resp 18 10/02/19 12:04 BP 139/53 10/02/19 12:04 Pulse Ox 95 10/02/19 12:04 Intake & Output 10/01/19 10/02/19 10/02/19 18:59 06:59 18:59 Intake Total 0 1688 Output Total 865 300 Balance -865 1388 Weight 150 lb Intake: IV Fluids 1448 NS (0.9%) 1348 NS 100ML, Cefazolin 2G 100 Oral 0 240 Output: Urine 865 300 Residual 0 [place] 16 Fr 0 Other: Estimated Void Medium # Voids 1 Assessment: [Left femoral neck fracture treated with ORIF with cannulated screws. ] Plan: [TTWB Continue with PT PMRU to assess the pt this weekend. Continue with current anticoagulation Continue with pain medication. ]
[2019-10-02] MEDS: Acetaminophen TAB* 325 MG PO PRN (16:24)
[2019-10-02] MEDS ORDERED: Ondansetron INJ* 2 MG/ML VIAL ONE (17:11)
[2019-10-02] MEDS: Ondansetron INJ* 2 MG/ML VIAL IV PRN (17:13)
--- NOTE | 2019-10-03 00:23 | OP ---
OPERATIVE REPORT: DATE OF OPERATION: 10/01/19 DATE OF : 45 SURGEON: Bernardo Gonsalves MD IT SOFTWARE ENGINEER: None. ANESTHESIOLOGIST: Dr. Joao Mar. ANESTHESIA: General anesthesia, local anesthesia. PRE-OP DIAGNOSIS: Left hip fracture, femoral neck, minimally displaced. POST-OP DIAGNOSIS: Left hip fracture, femoral neck, minimally displaced. OPERATIVE PROCEDURE: Open reduction and internal fixation, left hip femoral neck fracture with cannu lated screw fixation. ANTIBIOTICS: Ancef 2 g IV. IV FLUIDS: 1100 cc of crystalloid. [id number] TIME: 48 minutes. RADIATION EXPOSURE: C-arm used. SPECIMEN: None. IMPLANTS: Synthes 7.3 mm cannulated partially threaded screws. Short threads were used. No washers . COMPLICATIONS: None. ESTIMATED BLOOD LOSS: Minimal. INDICATIONS FOR PROCEDURE: The patient is a 74-year-old man, active, community ambulator without ass ist, who lives at home with his , who fell with mechanical fall on 09/30/19. He went to [facility] and was then directed to the emergency room with a minimally displaced left femoral neck frac ture. X-ray and CT scan imaging were obtained. I saw the patient early in the morning of 10/01/19. I discussed with him possible surgical options i ncluding open reduction internal fixation with cannulated screws. Alternatively, a total hip arthropl asty was discussed. I discussed pros and cons of each. Discussed risks and potential complications of surgery. The patient preferred cannulated screw fixation. This was my slight preference as well. DESCRIPTION OF PROCEDURE: In preoperative holding, the patient signed a written consent. Operative extremity was marked in preoperative holding. The patient was taken back to the operating room and p laced supine on stretcher or kept supine on stretcher. Sedated and intubated. The patient was trans ferred to the fracture table. Fracture table was assembled appropriately. C-arm was brought in. Mini time-out was performed. I t ried to obtain some improved reduction at the fracture site. I started to pull some traction. It di d not appear to improve the reduction and seemed like it could possibly make it worse. Therefore, I undid the traction and the reduction returned to what it was at the start. We next prepped and drape d using shower curtains, standard fracture table setup. Formal surgical time-out was performed. I made a lateral longitudinal skin incision from the level of the lesser trochanter proximally. This incision was certainly longer than my typical incision. I changed knives and dissected down to the iliotibial band. I split that and then the vastus lateralis. I placed pin to bone. This was at the level of the lesser trochanter. I placed pin into the inferio r aspect of the femoral head and neck. AP and lateral images confirmed a central pin placement and i nferior in the head and neck. This was almost as far inferior as you could go with obtaining a good purchase in that femoral head. I used the Honeycomb adaptor and placed additional pins, K-wires, first anterosuperior and then poste rosuperior. The superior pins were just about the midpoint of the femoral neck inferior to superior or just superior. The anterior pin could have been slightly more anterior, but the posterior pin was in an excellent location. I drilled lateral cortex, measured pin length, and then placed my screws. Purchase of screws and bon e was good, but not excellent. I should note that I picked short rather than long threads after holding a screw over the body and de termining that the long screw threads would not all get proximal to the fracture site. Therefore, sh ort threads would be better to obtain compression at the fracture site. With final x-rays obtained, we performed closure. Irrigation. Closure of the iliotibial band with a running locking stitch using Vicryl #0 suture. Cl osure of the subcutaneous tissue with buried simple stitches using Vicryl 2-0 suture. Staple closure of the skin. Local anesthesia was injected about the incision site. Xeroform, 4 x 4s, ABDs, foam t ape. The patient was placed on the stretcher, awake and extubated. DISPOSITION: Postoperatively, the patient was readmitted to the hospitalist service. Orthopedics wi ll continue to consult. Dressing will be changed on postoperative day #3 or sooner. The patient, so emily, is going to go home or to rehab. The patient will be toe touch weightbearing. Physical therap y and occupational therapy. Pain control as needed. IV antibiotics for 24 hours postoperatively, An cef 1 g IV q.8 hours. The patient will see me in approximately 2 weeks in clinic with x-rays and a w ound check. I will limit the patient's weightbearing for approximately 6 weeks postoperatively. [id number]/[facility] #: [id number]
[2019-10-03] MEDS: Acetaminophen TAB* 325 MG PO PRN ×3 (03:26→19:50)
[2019-10-03] MEDS: Docusate CAP* 100 MG PO SCH ×2 (08:55→21:29)
[2019-10-03] MEDS: Fluticasone NASAL SPRAY 50MCG* 16 gm SPRAY BTL BOTH NARES SCH (08:56)
--- NOTE | 2019-10-03 09:56 | PN ---
Progress Note - Progress Note Date of Service: 10/03/19 SOAP: Subjective: Taking Tylenol for pain. Noted some more discomfort after PT yesterday. Dispo planning is in the works. Objective: LLE: - dressing is c/d/i - NVID Selected Entries 10/03/19 08:19 Temperature 97.9 F Pulse Rate 70 Respiratory 17 Rate Blood Pressure 118/65 (mmHg) O2 Sat by Pulse 97 Oximetry Laboratory Tests 10/02/19 05:35 WBC 9.4 Hct 44 Assessment: POD 2 cannulated screws left hip femoral neck Plan: - Lovenox - Pain control - PT, toe touch weight bearing left lower extrmeity - Dispo planning with likely discharge tomorrow - Dressing change tomorrow - Patient will follow up with us 10-14 days postop in clinic
--- NOTE | 2019-10-03 16:10 | PN ---
Subjective Date of Service: 10/03/19 Interval History: Nose bleed this am. Took 15 mins to stop. Improved with pressure.h/o remote nose bleed.denies other complaints Family History: Unchanged from Admission Social History: Unchanged from Admission Past Medical History: Unchanged from Admission Objective Active Medications: Acetaminophen (Tylenol Tab*) 650 mg PO Q4H PRN PRN Reason: MILD PAIN or TEMP > 100.4 Last Admin: 10/03/19 07:48 Dose: 650 mg Docusate Sodium (Colace Cap*) 100 mg PO BID [facility] Last Admin: 10/03/19 08:55 Dose: 100 mg Enoxaparin Sodium (Lovenox(*)) 40 mg SUBCUT DAILY [facility] Fluticasone Propionate (Flonase Nasal [place] 50mcg*) 2 spray BOTH NARES DAILY [facility] Last Admin: 10/03/19 08:56 Dose: Not Given Lactated Ringer's (Lactated Ringers 1000 Ml Bag*) 1,000 mls @ 100 mls/hr IV PER RATE [facility] Last Admin: 10/02/19 03:10 Dose: 100 mls/hr Magnesium Hydroxide (Milk Of Magnmagali Liq*) 30 ml PO BID PRN PRN Reason: CONSTIPATION Morphine Sulfate (Morphine Inj (Syringe))*) 2 mg IV Q4H PRN PRN Reason: PAIN - SEVERE Ondansetron HCl (Zofran Inj*) 4 mg IV Q6H PRN PRN Reason: NAUSEA Last Admin: 10/02/19 17:13 Dose: 4 mg Oxycodone/Acetaminophen (Percocet 5/325 Tab*) 1 tab PO Q4H PRN PRN Reason: PAIN - MODERATE Last Admin: 10/01/19 12:52 Dose: 1 tab Polyethylene Glycol/Electrolytes (Miralax*) 17 gm PO DAILY PRN PRN Reason: CONSTIPATION Last Admin: 10/02/19 08:56 Dose: 17 gm Senna (Senokot 8.6 Mg Tab*) 1 tab PO BEDTIME PRN PRN Reason: CONSTIPATION Vital Signs - 8 hr 10/03/19 08:19 Temperature 97.9 F Pulse Rate 70 Respiratory 17 Rate Blood Pressure 118/65 (mmHg) O2 Sat by Pulse 97 Oximetry Oxygen Devices in Use Now: None, Nasal Cannula Eyes: No Scleral Icterus Ears/Nose/Mouth/Throat: NL Teeth, Lips, Gums Neck: NL Appearance and Movements; NL JVP Respiratory: Symmetrical Chest Expansion and Respiratory Effort Cardiovascular: NL Sounds; No Murmurs; No JVD Abdominal: NL Sounds; No Tenderness; No Distention Extremities: No Edema Neurological: Alert and Oriented x 3 Result Diagrams: 10/02/19 05:35 10/02/19 05:35 Assess/Plan/Problems-Billing Assessment: Mr. Wallace is a 74 y.o male with no significant past medical history who presented to the ER on 09/30/17 with left hip pain after a mechanical fall, found to have a left femoral neck fracture. - Patient Problems (1) Hip fracture, left Current Visit: Yes Status: Acute Code(s): S72.002A - FRACTURE OF UNSP PART OF NECK OF LEFT FEMUR, INIT SNOMED Code(s): 020536948 Comment: POD #2 s/p surgical repair, management per ortho Continue with pain management, bowel regimen PT/OT PMRU referral -Per ortho (2) Allergic rhinitis Current Visit: Yes Status: Chronic Code(s): J30.9 - ALLERGIC RHINITIS, UNSPECIFIED SNOMED Code(s): 30651219 Comment: Continue Flonase. Saline nose drops prn (3) DVT prophylaxis Current Visit: Yes Status: Acute Code(s): Z29.9 - ENCOUNTER FOR PROPHYLACTIC MEASURES, UNSPECIFIED SNOMED Code(s): 957929048 Comment: Per ortho SCDs and SQ Lovenox (4) Full code status Current Visit: Yes Status: Acute Code(s): Z78.9 - OTHER SPECIFIED HEALTH STATUS SNOMED Code(s): 114068445 Status and Disposition: Inpatient. PMRU referral pending.
[2019-10-03] MEDS ORDERED: Saline NASAL SPRAY 0.65%* BTL BOTH NARES PRN (16:11)
[2019-10-03] MEDS: Enoxaparin(*) 40 MG/0.4 ML SYR SUBCUT SCH (21:29)
[2019-10-04 05:44] LABS: ABS Lymphocytes 1.1 10^3/ul (1.0-4.8); ABS Monocytes 1.4 10^3/ul (0-0.8); ABS Neutrophils 9.3 10^3/ul (1.5-7.7); Eosinophil % 0.1 %; Hematocrit 43 % (42-52); Hemoglobin 14.5 g/dL (14.0-18.0); Lymphocyte % 8.9 %; Mean Corpuscular HGB Conc 34 g/dL (31-36); Mean Corpuscular Hemoglobin 29 pg (27-31); Mean Corpuscular Volume 85 fL (80-94); Mean Platelet Volume 6.7 fL (7.4-10.4); Nucleated Red Blood Cells % 0.1; Platelet Count 158 10^3/uL (150-450); Red Blood Count 4.98 10^6 /uL (4.18-5.48); Red Cell Distribution Width 13 % (10-15); White Blood Count 11.8 10^3/uL (3.5-10.8)
[2019-10-04 05:58] LABS: BUN/Creatinine Ratio 20.2 (8-20); Calcium 8.9 mg/dL (8.6-10.3); EGFR African American 108.1 (>60); EGFR Non-African American 89.3 (>60); Potassium 4.1 mmol/L (3.5-5.0)
[2019-10-04] MEDS: Fluticasone NASAL SPRAY 50MCG* 16 gm SPRAY BTL BOTH NARES SCH (09:04)
[2019-10-04] MEDS: Acetaminophen TAB* 325 MG PO PRN ×3 (09:04→20:14)
[2019-10-04] MEDS: Docusate CAP* 100 MG PO SCH ×3 (09:05→20:18)
[2019-10-04] MEDS: Ondansetron INJ* 2 MG/ML VIAL IV PRN (10:24)
[2019-10-04] MEDS ORDERED: Bisacodyl SUPP* 10 MG SUPP PR PRN (11:16)
--- NOTE | 2019-10-04 12:01 | PN ---
Progress Note - Progress Note Date of Service: 10/04/19 SOAP: Subjective: Tolerated POs yesterday , but vomited this AM. Was labored breathing on phone this morning, but he is fine now without complaint. Objective: LLE: - Incision c/d/i per Ortho development team lead who changed dressing earlier - NVID Selected Entries 10/03/19 10/03/19 10/04/19 17:36 19:50 00:03 Temperature 98.8 F 100.3 F 100.7 F Pulse Rate Respiratory Rate Blood Pressure (mmHg) O2 Sat by Pulse Oximetry 10/04/19 10/04/19 10/04/19 04:02 07:05 11:07 Temperature 98.2 F 99.7 F 98.6 F Pulse Rate 97 Respiratory 18 Rate Blood Pressure 113/61 (mmHg) O2 Sat by Pulse 97 Oximetry Laboratory Tests 10/02/19 10/04/19 05:35 05:26 WBC 9.4 11.8 H Neut % (Auto) 86.7 78.8 Assessment: POD 3 cannulated screw ORIF L hip femoral neck Plan: - Lovenox - Toe touch weight bearing - Dispo planning - Pain control - PT/OT - Follow up ~ 14 days postop in clinic - Encouraged incentive spirometry
--- NOTE | 2019-10-04 12:04 | PN ---
Progress Note - Progress Note Date of Service: 10/04/19 SOAP: Subjective: [Patient seen today sitting at bedside. He states he has some SOB overnight and this morning but it is improving. He had PT already this morning and felt a little worse after. He states he felt better yesterday. He has had nausea and 1 episode of vomiting this morning. He denies CP, f/c, or calf pain. ] Objective: [Gen: NAD, A&Ox3 LLE: Dressing changed, incision C/D/I with no erythema or signs of infection. Mild ecchymosis surrounding incision. Thigh soft and nontender. He is able to stand for the dressing change with the walker. Calf soft and nontender without palpable cords. +DF/PF, NVI distally.] Assessment: POD 3 cannulated screw ORIF L hip femoral neck Plan: - Lovenox for DVT ppx - Toe touch weight bearing - Dispo planning, likely will go home tomorrow - Pain control - PT/OT - Follow up ~ 14 days postop with in clinic -Will monitor vitals -Supp ordered for constipation - Encouraged incentive spirometry Vital Signs Temp Pulse Resp BP Pulse Ox 98.6 F 97 18 113/61 97 10/04/19 11:07 10/04/19 11:07 10/04/19 11:07 10/04/19 11:07 10/04/19 11:07 Laboratory Last Values WBC 11.8 10^3/uL (3.5-10.8) H 10/04/19 05:26 RBC 4.98 10^6 /uL (4.18-5.48) 10/04/19 05:26 Hgb 14.5 g/dL (14.0-18.0) 10/04/19 05:26 Hct 43 % (42-52) 10/04/19 05:26 MCV 85 fL (80-94) 10/04/19 05:26 MCH 29 pg (27-31) 10/04/19 05:26 MCHC 34 g/dL (31-36) 10/04/19 05:26 RDW 13 % (10-15) 10/04/19 05:26 Plt Count 158 10^3/uL (150-450) 10/04/19 05:26 MPV 6.7 fL (7.4-10.4) L 10/04/19 05:26 Neut % (Auto) 78.8 % 10/04/19 05:26 Lymph % (Auto) 8.9 % 10/04/19 05:26 [place] % (Auto) 11.9 % 10/04/19 05:26 Eos % (Auto) 0.1 % 10/04/19 05:26 Baso % (Auto) 0.3 % 10/04/19 05:26 Absolute Neuts (auto) 9.3 10^3/ul (1.5-7.7) H 10/04/19 05:26 Absolute Lymphs (auto) 1.1 10^3/ul (1.0-4.8) 10/04/19 05:26 Absolute Monos (auto) 1.4 10^3/ul (0-0.8) H 10/04/19 05:26 Absolute Eos (auto) 0.0 10^3/ul (0-0.6) 10/04/19 05:26 Absolute Basos (auto) 0.0 10^3/ul (0-0.2) 10/04/19 05:26 Absolute Nucleated RBC 0.0 10^3/ul 10/04/19 05:26 Nucleated RBC % 0.1 10/04/19 05:26 INR (Anticoag Therapy) 1.10 (0.82-1.09) H 10/01/19 05:26 Sodium 137 mmol/L (135-145) 10/04/19 05:26 Potassium 4.1 mmol/L (3.5-5.0) 10/04/19 05:26 Chloride 101 mmol/L (101-111) 10/04/19 05:26 Carbon Dioxide 30 mmol/L (22-32) 10/04/19 05:26 Anion Gap 6 mmol/L (2-11) 10/04/19 05:26 BUN 17 mg/dL (6-24) 10/04/19 05:26 Creatinine 0.84 mg/dL (0.67-1.17) 10/04/19 05:26 Est GFR ( Amer) 108.1 (>60) 10/04/19 05:26 Est GFR (Non-Af Amer) 89.3 (>60) 10/04/19 05:26 BUN/Creatinine Ratio 20.2 (8-20) H 10/04/19 05:26 Glucose 115 mg/dL (70-100) H 10/04/19 05:26 Calcium 8.9 mg/dL (8.6-10.3) 10/04/19 05:26 Total Bilirubin 0.40 mg/dL (0.2-1.0) 09/30/19 18:50 AST 16 U/L (13-39) 09/30/19 22:42 ALT 24 U/L (7-52) 09/30/19 18:50 Alkaline Phosphatase 81 U/L (34-104) 09/30/19 18:50 Total Protein 7.4 g/dL (6.4-8.9) 09/30/19 18:50 Albumin 4.3 g/dL (3.2-5.2) 09/30/19 18:50 Globulin 3.1 g/dL (2-4) 09/30/19 18:50 Albumin/Globulin Ratio 1.4 (1-3) 09/30/19 18:50 TSH 3.07 mcIU/mL (0.34-5.60) 10/01/19 05:26 Urine Color Yellow 10/01/19 17:30 Urine Appearance Cloudy 10/01/19 17:30 Urine pH 7.0 (5-9) 10/01/19 17:30 Ur Specific Center 1.018 (1.010-1.030) 10/01/19 17:30 Urine Protein Negative (Negative) 10/01/19 17:30 Urine Ketones Trace (Negative) A 10/01/19 17:30 Urine Blood Negative (Negative) 10/01/19 17:30 Urine Nitrate Negative (Negative) 10/01/19 17:30 Urine Bilirubin Negative (Negative) 10/01/19 17:30 Urine Urobilinogen Negative (Negative) 10/01/19 17:30 Ur Leukocyte Esterase Negative (Negative) 10/01/19 17:30 Urine Glucose Negative (Negative) 10/01/19 17:30 Blood Type O Positive 09/30/19 19:55 Antibody Screen Negative 09/30/19 19:55
--- NOTE | 2019-10-04 14:05 | PN ---
Subjective Date of Service: 10/04/19 Interval History: Denies any pain. Denies further nose bleeds. Reports feeling well Family History: Unchanged from Admission Social History: Unchanged from Admission Past Medical History: Unchanged from Admission Objective Active Medications: Acetaminophen (Tylenol Tab*) 650 mg PO Q4H PRN PRN Reason: MILD PAIN or TEMP > 100.4 Last Admin: 10/04/19 09:04 Dose: 650 mg Bisacodyl (Dulcolax Supp*) 10 mg NC DAILY PRN PRN Reason: CONSTIPATION Last Admin: 10/04/19 11:43 Dose: 10 mg Docusate Sodium (Colace Cap*) 100 mg PO BID [facility] Last Admin: 10/04/19 09:15 Dose: 100 mg Enoxaparin Sodium (Lovenox(*)) 40 mg SUBCUT 2100 [facility] Last Admin: 10/03/19 21:29 Dose: 40 mg Fluticasone Propionate (Flonase Nasal [place] 50mcg*) 2 spray BOTH NARES DAILY [facility] Last Admin: 10/04/19 09:04 Dose: 2 spray Lactated Ringer's (Lactated Ringers 1000 Ml Bag*) 1,000 mls @ 100 mls/hr IV PER RATE [facility] Last Admin: 10/02/19 03:10 Dose: 100 mls/hr Magnesium Hydroxide (Milk Of Magnmagali Liq*) 30 ml PO BID PRN PRN Reason: CONSTIPATION Last Admin: 10/04/19 09:04 Dose: 30 ml Morphine Sulfate (Morphine Inj (Syringe))*) 2 mg IV Q4H PRN PRN Reason: PAIN - SEVERE Ondansetron HCl (Zofran Inj*) 4 mg IV Q6H PRN PRN Reason: NAUSEA Last Admin: 10/04/19 10:24 Dose: 4 mg Oxycodone/Acetaminophen (Percocet 5/325 Tab*) 1 tab PO Q4H PRN PRN Reason: PAIN - MODERATE Last Admin: 10/01/19 12:52 Dose: 1 tab Polyethylene Glycol/Electrolytes (Miralax*) 17 gm PO DAILY PRN PRN Reason: CONSTIPATION Last Admin: 10/02/19 08:56 Dose: 17 gm Senna (Senokot 8.6 Mg Tab*) 1 tab PO BEDTIME PRN PRN Reason: CONSTIPATION Sodium Chloride (Sodium Chloride 0.65% Nasal [place]*) 1 spray BOTH NARES Q4H PRN PRN Reason: dryness Vital Signs - 8 hr 10/04/19 10/04/19 10/04/19 07:05 08:00 11:07 Temperature 99.7 F 98.6 F Pulse Rate 92 97 Respiratory 19 18 18 Rate Blood Pressure 119/65 113/61 (mmHg) O2 Sat by Pulse 95 97 Oximetry Oxygen Devices in Use Now: None, Nasal Cannula Eyes: No Scleral Icterus Ears/Nose/Mouth/Throat: NL Teeth, Lips, Gums Neck: NL Appearance and Movements; NL JVP Respiratory: Symmetrical Chest Expansion and Respiratory Effort Abdominal: NL Sounds; No Tenderness; No Distention Extremities: No Edema Result Diagrams: 10/04/19 05:26 10/04/19 05:26 Assess/Plan/Problems-Billing Assessment: Mr. Wallace is a 74 y.o male with no significant past medical history who presented to the ER on 09/30/17 with left hip pain after a mechanical fall, found to have a left femoral neck fracture. - Patient Problems (1) Hip fracture, left Current Visit: Yes Status: Acute Code(s): S72.002A - FRACTURE OF UNSP PART OF NECK OF LEFT FEMUR, INIT SNOMED Code(s): 273726373 Comment: POD #3 s/p surgical repair, management per ortho Continue with pain management, bowel regimen PT/OT PMRU referral -Per ortho (2) Allergic rhinitis Current Visit: Yes Status: Chronic Code(s): J30.9 - ALLERGIC RHINITIS, UNSPECIFIED SNOMED Code(s): 89254434 Comment: Continue Flonase. Saline nose drops prn (3) DVT prophylaxis Current Visit: Yes Status: Acute Code(s): Z29.9 - ENCOUNTER FOR PROPHYLACTIC MEASURES, UNSPECIFIED SNOMED Code(s): 761910805 Comment: Per ortho SCDs and SQ Lovenox (4) Full code status Current Visit: Yes Status: Acute Code(s): Z78.9 - OTHER SPECIFIED HEALTH STATUS SNOMED Code(s): 636503507 Status and Disposition: Inpatient. PMRU referral pending.
[2019-10-04] MEDS ORDERED: NS 0.9% 250 ML* 250 ML IV ONE (18:55)
--- NOTE | 2019-10-04 19:01 | PN ---
Hospitalist Progress Note Date of Service: 10/04/19 Per nursing pt having chills,feeling feverish no fever.BP also dropped to the 90s on serial measurement.WBC was mildly elevated this am. Will get blood,urine cx to r/o infection and CXR to r/o developing pneumonia. Will give NS 250cc bolus and also s/o to overnight team. Antibiotics if warranted on above testing / clinical progress
[2019-10-04] MEDS: Enoxaparin(*) 40 MG/0.4 ML SYR SUBCUT SCH (20:15)
[2019-10-04 20:21] LABS: ABS Monocytes 1.5 10^3/ul (0-0.8); ABS Neutrophils 10.8 10^3/ul (1.5-7.7); Eosinophil % 0.2 %; Hematocrit 42 % (42-52); Lymphocyte % 7.5 %; Mean Corpuscular HGB Conc 34 g/dL (31-36); Mean Corpuscular Hemoglobin 29 pg (27-31); Mean Corpuscular Volume 86 fL (80-94); Mean Platelet Volume 6.4 fL (7.4-10.4); Platelet Count 166 10^3/uL (150-450); Red Blood Count 4.88 10^6 /uL (4.18-5.48); Red Cell Distribution Width 14 % (10-15); White Blood Count 13.4 10^3/uL (3.5-10.8)
[2019-10-04 20:36] LABS: BUN/Creatinine Ratio 23.5 (8-20); Calcium 9.3 mg/dL (8.6-10.3); EGFR African American 90.5 (>60); EGFR Non-African American 74.8 (>60); Potassium 4.1 mmol/L (3.5-5.0)
[2019-10-04 20:51] LABS: Urine Appearance Clear; Urine Color Yellow
[2019-10-04 20:55] LABS: Urine Bacteria Absent (Absent); Urine Ketones Negative (Negative); Urine Protein 1+(30 mg/dL) (Negative); Urine Red Blood Cell Absent (Absent); Urine Specific Gravity 1.035 (1.010-1.030); Urine Urobilinogen Negative (Negative); Urine White Blood Cell Absent (Absent)
[2019-10-04 20:56] LABS: Urine Bilirubin Negative (Negative); Urine Blood Negative (Negative); Urine Glucose Negative (Negative); Urine Nitrite Negative (Negative)
[2019-10-05 06:25] LABS: ABS Lymphocytes 1.1 10^3/ul (1.0-4.8); ABS Monocytes 1.5 10^3/ul (0-0.8); ABS Neutrophils 8.5 10^3/ul (1.5-7.7); Eosinophil % 0.3 %; Hematocrit 41 % (42-52); Hemoglobin 13.3 g/dL (14.0-18.0); Lymphocyte % 10.2 %; Mean Corpuscular HGB Conc 33 g/dL (31-36); Mean Corpuscular Hemoglobin 29 pg (27-31); Mean Corpuscular Volume 87 fL (80-94); Nucleated Red Blood Cells % 0.1; Platelet Count 156 10^3/uL (150-450); Red Blood Count 4.67 10^6 /uL (4.18-5.48); Red Cell Distribution Width 13 % (10-15); White Blood Count 11.2 10^3/uL (3.5-10.8)
[2019-10-05 06:41] LABS: BUN/Creatinine Ratio 23.9 (8-20); Calcium 8.8 mg/dL (8.6-10.3); EGFR African American 102.4 (>60); EGFR Non-African American 84.7 (>60); Potassium 3.9 mmol/L (3.5-5.0)
[2019-10-05 07:51] VITALS: BP 101/64
[2019-10-05] MEDS: Acetaminophen TAB* 325 MG PO PRN (08:38)
[2019-10-05] MEDS: Fluticasone NASAL SPRAY 50MCG* 16 gm SPRAY BTL BOTH NARES SCH (08:39)
[2019-10-05] MEDS: Docusate CAP* 100 MG PO SCH (08:39)
--- NOTE | 2019-10-05 11:55 | DS ---
CC: Dr. Ho * DATE OF ADMISSION: 09/30/2019. DATE OF DISCHARGE: 10/05/2019. PRIMARY CARE PHYSICIAN: Dr. Ho. DISPOSITION ON DISCHARGE: To [facility]. CONDITION ON DISCHARGE: Stable. PRIMARY DIAGNOSIS: Left femoral hip fracture, status post repair 10/02/2019. SECONDARY DIAGNOSES: Allergic rhinitis, history of prostate cancer, lumbar disk disease. HOME MEDICATIONS ON PRESENTATION: 1. Vitamin B12 1,000 mcg daily. 2. Multiple vitamin one tab daily. 3. Xyzal 5 mg daily. 4. Fluticasone two sprays both nares daily. 5. Vitamin D 1,000 units daily. 6. Astepro one spray both nares twice daily. MEDICATIONS ON DISCHARGE: 1. Astepro one spray both nares daily. 2. Vitamin D 1,000 units daily. 3. Vitamin B12 1,000 mcg daily. 4. Fluticasone one spray both nares daily. 5. Ibuprofen 200 mg twice daily. 6. Xyzal 5 mg daily. 7. Multivitamin one tab daily. 8. Acetaminophen 650 mg every 4 hours as needed for fever or pain. 9. Dulcolax suppository 10 mg per rectum daily as needed for constipation. 10. Colace 100 mg twice daily as needed for constipation. 11. Magnesium Hydroxide liquid 30 ml twice daily as needed for constipation. 12. Oxycodone/acetaminophen 5/325 one tab every four hours as needed for pain. 13. Nasal spray one spray both nares twice daily as needed for congestion. 14. Senna one tab at bedtime as needed for constipation. HISTORY OF PRESENT ILLNESS/HOSPITAL COURSE: This is a 74-year-old with a past medical history as outlined in the history of present on the day of admission who presented to the hospital on 09/30/2019 after a fall in his driveway while clearing snow, identified with a left femoral neck fracture, repaired by Dr. Gonsalves on 10/01/2019. Please see operative report for further details, uncomplicated. He was monitored on the floor, was working with Physical Therapy. He had no complications; however, on 10/04/2019, prior to discharge, he did have a low blood pressure with systolics of 90s which he did receive 250 cc of normal saline. He denied any chest pain, shortness of breath, nausea, vomiting, lightheadedness, event. He did have a temperature to 100.7 on 2018 in the evening. Chest x-ray was normal. His urine was normal. His white blood cell count was done, trending on the day of discharge. There is no identification for the etiology of his fever. No infectious source was identified. Blood culture is pending at the time of discharge, drawn at the time of the fever, 8:13 p.m. on 10/04/2019. There were no other complications during the course of this hospital stay. FOLLOW-UP, PLEASE: Follow-up blood cultures and urine culture that were sent on 10/04/2019 for an episode of fever. Thank you for participating in his care. TIME SPENT: Greater than 60 minutes were spent on this patient, greater than 30 minutes were spent [id number] with the patient. [id number]/[facility] #: [id number] ZULEYMA
== END 2019-10-05 11:50 | DRG 481 ==
LOC: ED 17:34 → SSU 20:33
PROVIDERS: ADMIT Hospitalist; ATTEND Internal Medicine
PROC: 0QS704Z Reposition Left Upper Femur with Internal Fixation Device, Open Approach (ICD-10-PCS; principal; 2019-10-01 20:00)
DX: S72.012A Unspecified intracapsular fracture of left femur, initial encounter for closed fracture (principal); J90 Pleural effusion, not elsewhere classified; J30.9 Allergic rhinitis, unspecified; R00.0 Tachycardia, unspecified; R04.0 Epistaxis; W00.0XXA Fall on same level due to ice and snow, initial encounter; I95.9 Hypotension, unspecified; R50.9 Fever, unspecified; D72.829 Elevated white blood cell count, unspecified; M51.36 Other intervertebral disc degeneration, lumbar region; Y93.H1 Activity, digging, shoveling and raking; Y92.89 Other specified places as the place of occurrence of the external cause; Z85.46 Personal history of malignant neoplasm of prostate; Z79.899 Other long term (current) drug therapy; Z88.1 Allergy status to other antibiotic agents; Z88.2 Allergy status to sulfonamides; Z82.49 Family history of ischemic heart disease and other diseases of the circulatory system
CPT/HCPCS: 36415; 71045; 71046; 72192; 80048; 80053; 81003; 81015; 84443; 85025; 85610; 86850; 86900; 86901; 87040; 93005; 99284; A9270-GY; C1713; G8978-GP-CK; G8979-GP-CI; G8987-GO-CK; G8988-GO-CI; J0690; J1170; J1650; J1885; J2250; J2405; J2704; J3010; J8540

== ENCOUNTER 2019-10-05 11:51 | Inpatient (IN) | payer MEDICARE ==
[2019-10-05] MEDS ORDERED: Magnesium Hydroxide LIQ* 30 ML UDC PO PRN (13:38)
[2019-10-05] MEDS ORDERED: Senna TAB 8.6 mg* TAB PO PRN (13:38)
[2019-10-05] MEDS ORDERED: oxyCODONE/Acetamin 5/325 MG* TAB PO PRN (13:46)
[2019-10-05] MEDS: Acetaminophen TAB* 325 MG PO PRN (18:43)
[2019-10-05] MEDS: Enoxaparin(*) 40 MG/0.4 ML SYR SUBCUT SCH (21:17)
[2019-10-05] MEDS: Docusate CAP* 100 MG PO SCH (21:17)
--- NOTE | 2019-10-05 21:56 | HP ---
HISTORY AND PHYSICAL: DATE OF ADMISSION: 10/05/19 REASON FOR ADMISSION: Left hip fracture. HISTORY OF PRESENT ILLNESS: Bartolo Wallace is a 74-year-old male. He has a medical history significant for prostate cancer in 2005. He underwent a TURP at that time. He also has a history of allergic rhinitis. On 09/30/19, the patient was sweeping snow out of his driveway. Apparently, he hit an icy area and fell. He was able to get up on his own and he used his broom to walk back into the house. Once in the house, the patient walked over to his stairwell and then went up the stairs on his rear end to the second floor. He went into his bedroom and changed his clothes and tried to lie down on his bed, however, that was too painful. He went back downstairs, again on his rear end, and waited in a chair until his got home. His was able to get him to the door as the chair he was in had wheels and he got up and went into the car. They went to [facility]. At [facility], they did a hip x-ray, which showed a left femoral neck fracture. He was sent to the emergency room for admission. He had routine blood work drawn, which showed a white blood cell count of 12.2. He was admitted to the hospital. The patient was seen by Dr. Gonsalves from Orthopedic Surgery. He was taken to the operating room on 10/01/19 and underwent an open reduction and internal fixation of a left hip fracture with cannulated screws. The patient was made toe-touch weightbearing. Dr. Gonsalves felt that he needed to be toe-touch weightbearing for 6 weeks. He was felt to have physical therapy and occupational therapy needs. On 10/04/19, the patient had a systolic blood pressure in the 90s. He received 250 cc bolus of normal saline. A urinalysis was done and a chest x-ray was done, which was normal. His white blood cell count remained elevated in an 11,000 range. Blood cultures were drawn, which remained pending, but no growth so far. The patient was felt to be stable for rehab. He is now being admitted for inpatient rehab so that he might return to independent living. PAST MEDICAL HISTORY: Significant for the aforementioned prostate cancer. FAMILY HISTORY: Not contributory CURRENT MEDICATIONS: Include: 1. Lovenox for DVT prophylaxis. 2. Tylenol. 3. An occasional Percocet. ALLERGIES: To LEVAQUIN and SULFA. SOCIAL HISTORY: The patient lives with his in a 2-story house. He is a nonsmoker. He drinks roughly 2 alcoholic beverages a month. REVIEW OF SYSTEMS: The patient reports no current shortness of breath or chest pain. PHYSICAL EXAMINATION VITAL SIGNS: The patient's temperature is 98.2, blood pressure is 119/68, pulse 85, respirations 18. HEENT: His extraocular movements are intact. Tongue is midline. NECK: Supple. LUNGS: Lungs sounded clear to auscultation bilaterally. HEART: Sounds are regular. S1, S2 are audible. ABDOMEN: Soft and nontender. EXTREMITIES: His left hip has a wound, which is clean and dry. Peripheral pulses are intact. Neurologic sensation was intact. Muscle strength 5/5 in both upper and lower extremities. FUNCTIONAL EXAM: He transfers with minimal assistance. ASSESSMENT: Left hip fracture, status post open reduction and internal fixation of the same. PLAN/RECOMMENDATIONS: Integrate him into a comprehensive and therapeutic rehab program with the following goals: 1. Physical Therapy will work with the patient. They are going to work on functional transfer training and ambulation training with a walker and maintaining his toe-touch weightbearing. 2. Occupational Therapy will see the patient and work on his activities of daily living including toileting and toilet transfers while maintaining his weightbearing status. 3. Lovenox for DVT prophylaxis. 4. Adequate analgesia. 5. His bowels will be regulated. 6. Warranty Administrator will be closely involved to make sure that any services and equipment that the patient requires are in place prior to discharge. 7. Family training as appropriate. 8. Home with appropriate services. 9. Advance directives: His is his surrogate decision maker. He is a full code. ESTIMATED LENGTH OF STAY: Twelve days. [id number]/[facility] #: [id number] MTDD
[2019-10-06] MEDS: Acetaminophen TAB* 325 MG PO PRN ×2 (00:42→22:35)
[2019-10-06] MEDS: Docusate CAP* 100 MG PO SCH ×2 (09:10→20:01)
--- NOTE | 2019-10-06 12:29 | PMRUTEAM ---
PMRU: Team Meeting Current Status: Physical Therapy: Current Status Current Rolling Status Supervision/Touching Current Supine <-> Sit Status Supervision/Touching Current Sit <-> Stand Status Supervision/Touching Current Bed <-> Chair Status Supervision/Touching Transfer/Bed Mobility Rolling Walker Recommended Devices Current Picking Up Object Supervision/Touching Status Current Car Transfer Status Supervision/Touching Current Ambulation Assistance Supervision/Touching Status Ambulation Assistive Device Rolling Walker Ambulation Conditions Two or More Turns Current Ambulation Distance 75 Current Wheelchair Propulsion Supervision/Touching Ability Status Wheelchair Distance (ft) 50 Current Stair Climbing Status Supervision/Touching Stair Climbing Assistive Left Railing,Right Railing Devices Number of Stairs Climbed 2x5 Current Curb Assistance Status Supervision/Touching Curb Assistive Devices Rolling Walker Occupational Therapy: Current Status Current Upper Body Dressing Independent Status Current Lower Body Dressing Partial/Moderate Status Lower Body Dressing Progress A to thread LLE Current Footwear Status Partial/Moderate Current Bathing Status Partial/Moderate Current Toileting Status Supervision/Touching Current Toilet Transfer Status Supervision/Touching Current Eating Status Independent Nursing: Current Status Skin Deviations [L hip] Incision Skin Deviations [R hip] Incision Skin Deviations [Bilat elbows] Abrasion Skin Deviation Description [R moderate amt drainage to distal end of dressing hip] Skin Deviation Description [ Scabbed Bilat elbows] Bladder Current Status Continent - supervision with toileting Bowel Current Status Continent - stand by with toileting Nutrition Current Status Eats 100% of most meals - no nausea noted Medication Current Status Needs reminders with medications Rec Therapy: Current Status Summary of Assessment and Recreation Therapy services have been introduced Clinical Impression and assessment is complete. Pt. is soft-spoke, polite, and open to continued leisure visits along with pet therapy. Treatment Goals Pt. will engage in leisure activities while on the unit. Treatment Plan Provide recreation therapy services and encourage involvement. Nutrition: Current Status Monitoring Pt admitted for L hip fx 10/05. Maintained on regular unrestricted diet, w/good intake at meals. Thus far consuming 100% at all meals. Last BM today 10/06. No GI s/sx such as n/v/abd pain noted . Labs/meds rev'd. Full nutrition assessment to follow 10/12. Goals: Physical Therapy: Goals Goals to Be Accomplished in ( 3-4 Days) Goal: Rolling Assistance Independent Goal Supine <-> Sit Status Independent Goal Sit <-> Stand Status Independent Goal Bed <-> Chair Status Independent Transfer/Bed Mobility Rolling Walker Recommended Devices Goal: Picking Up Object Independent Goal: Car Transfer Status Setup or Clean-up Assist Goal: Ambulation Assistance Independent Ambulation Assistive Devices Rolling Walker Ambulation Distance (ft) 150 Goal: Wheelchair Propulsion Independent Ability Wheelchair Distance (ft) 150 Goal: Stairs Assistance Setup or Clean-up Assist Stairs Recommended Devices Two Rails Number of Stairs 5 Goal: Curb Assistance Independent Goal: Home Exercise Program Independent Assistance Occupational Therapy: Goals Goals to be Completed in (Days 2-3 ) Goal Upper Body Dressing Independent Routine Goal Lower Body Dressing Independent Routine Goal Footwear Status Independent Goal Bathing Routine (OT) Independent Goal Grooming Routine Independent Goal Toilet Hygiene and Independent Clothing Management Routine Goal Toilet Transfer Routine Independent Goal Functional Transfers for Independent ADL Goal Feeding Routine Independent Nutrition: Goals Intervention Goals 1. adequate intake to support hydration and lean body mass without significant wt change 2. glycemic control within inpatient parameters; no s/sx hypo-hyperglycemia 3. maintain serum electrolytes WNL 4. regulation of bowel pattern; no c/o constipation (or diarrhea) Nursing: Goals Bladder Goal Continent - independent with toileting Bowel Goal Continent - independent with toileting Nutrition Goal Eats 100% of all meals Medication Goal Independent with medications Care Plan: Care Plan Discharge Planning - Improve/Maintain Start: 10/06/19 01:33 Freq: DAILY@0700,1900 Status: Active Target: 10/17/19 Protocol: Activity Type Activity Date Activity User E-Sign Co-Sign Detail Recorded Client Recorded Date Recorded By Document 10/06/19 09:05 [id number] 10/06/19 09:06 [id number] 10/06/19 09:05 PMRU Outcome: Discharge Planning Update Patient Family No Current Discharge Planning Outcome/Goals Demonstrates Understanding of Discharge Plan Progression Toward Outcome/Goals Progressing Education-Improve/Maintain Start: 10/05/19 21:59 Freq: DAILY@0700,1900 Status: Active Target: 10/17/19 Protocol: Activity Type Activity Date Activity User E-Sign Co-Sign Detail Recorded Client Recorded Date Recorded By Document 10/06/19 09:05 [id number] [email or web address] 10/06/19 09:06 [id number] 10/06/19 09:05 PMRU Outcome: Education Current Education Outcome/Goals Demonstrate/ Verbalize Understanding of Written Discharge Instructions Encourage Questions Progression Toward Outcome/Goals Progressing Medication Administration Start: 10/05/19 21:59 Freq: DAILY@0700,1900 Status: Active Target: 10/17/19 Protocol: Activity Type Activity Date Activity User E-Sign Co-Sign Detail Recorded Client Recorded Date Recorded By Document 10/06/19 09:05 [id number] [id number] 10/06/19 09:06 [id number] 10/06/19 09:05 PMRU Outcome: Medication Administration Assess Patient Knowledge/Teach Med No Education for all Meds Current Sound Controller Outcome/Goals Patient Independent with Medication Administration at Home Progression Towards Outcome/Goals Progressing Is Patient Going Home on Lovenox? No Pain/Comfort- Improve/Maintain Start: 10/06/19 01:33 Freq: DAILY@0700,1900 Status: Active Target: 10/17/19 Protocol: Activity Type Activity Date Activity User E-Sign Co-Sign Detail Recorded Client Recorded Date Recorded By Document 10/06/19 09:05 [id number] 10/06/19 09:06 [id number] 10/06/19 09:05 PMRU Outcome: Pain/Comfort Current Pain/Comfort Outcome/Goals Demonstrates Knowledge and Use of Available Comfort Measures Achieves Acceptable Comfort/Pain Level as Determined by Patient/Condit Maintain Comfort Level Allowing Patient to Fully Participate in Rehab Progression Toward Outcome/Goals Progressing Outcome/Goals Met Achieves Acceptable Comfort/Pain Level as Determined by Patient/Condit Rec Therapy- Improve/Maintain Start: 10/05/19 16:31 Freq: DAILY@07,1900 Status: Active Target: 10/06/19 Protocol: Activity Type Activity Date Activity User E-Sign Co-Sign Detail Recorded Client Recorded Date Recorded By Document 10/05/19 16:31 [id number] [email or web address] 10/05/19 16:31 [id number] 10/05/19 16:31 PMRU Outcome: Recreation Therapy Current Rec Ther Outcome/Goals Complete Rec Therapy Assessment Meet with Patient Regularly for Support Encourage Leisure Involvement Progression Toward Outcome/Goals Goal Initiation Safety- Improve/Maintain Start: 10/05/19 12:13 Freq: DAILY@0700,1900 Status: Active Target: 10/17/19 Protocol: Activity Type Activity Date Activity User E-Sign Co-Sign Detail Recorded Client Recorded Date Recorded By Document 10/06/19 09:05 [id number] [email or web address] 10/06/19 09:06 [id number] 10/06/19 09:05 PMRU Outcome: Safety Current Safety Outcome/Goals Remain Free of Injury or Harm Cooperates with Safety Measures for Least Restrictive Environment Prevent Falls/ Injury Progression Toward Outcome/Goals Goal Initiation Skin- Improve/Maintain Start: 10/05/19 21:59 Freq: DAILY@0700,1900 Status: Active Target: 10/17/19 Protocol: Activity Type Activity Date Activity User E-Sign Co-Sign Detail Recorded Client Recorded Date Recorded By Document 10/06/19 09:05 [id number] 10/06/19 09:06 [id number] 10/06/19 09:05 PMRU Outcome: Skin Skin Risk Level No Risk Current Skin Outcome/Goals Maintain/ Improve Skin Integrity Surgical Incisions Healing Progression Toward Outcome/Goals Progressing - Interdisciplinary Staff Present Impression Printer/Social Work Staff Present: Safia Christine LMSW Nursing Staff Present: Heather Jeffers LPN OT Staff Present: Rosangela Bryant PT Staff Present: Shari Mcneill Rec Therapy Staff Present: Feli Tee Medicine Note: Length of Stay: 2 days Anticipated Discharge Destination: Home Tentative Discharge Date: 10/08/2019 Discharged to: Home
[2019-10-06] MEDS: Ondansetron ODT TAB* 4 MG PO PRN (14:14)
--- NOTE | 2019-10-06 19:41 | PN ---
Progress Note Date of Service: 10/06/19 Note: CANDI FARRIS was visited. Therapy notes read and reviewed. He was discussed in interdisciplinary team rounds. He is doing quite well. Pain controlled with Tylenol. Had some vomiting once today. Relieved by Zofran Current Medications: Active Medications Generic Name Dose Route Start Last Admin Trade Name Freq PRN Reason Stop Dose Admin Acetaminophen 650 mg 10/05/19 13:38 10/06/19 00:42 Tylenol Tab* PO 650 mg Q6H PRN Administration MILD PAIN or TEMP > 100.4 Docusate Sodium 100 mg 10/05/19 21:00 10/06/19 09:10 Colace Cap* PO 100 mg BID CELESTINO Administration Enoxaparin Sodium 40 mg 10/05/19 21:00 10/05/19 21:17 Lovenox(*) SUBCUT 40 mg Q24H CELESTINO Administration Magnesium Hydroxide 30 ml 10/05/19 13:38 Milk Of Magnesia Liq* PO Q6H PRN CONSTIPATION Ondansetron HCl 4 mg 10/06/19 13:32 10/06/19 14:14 Zofran Odt Tab* PO 4 mg Q8H PRN Administration NAUSEA/VOMITING Oxycodone/Acetaminophen 1 tab 10/05/19 13:46 Percocet 5/325 Tab* PO Q6H PRN PAIN - SEVERE Senna 2 tab 10/05/19 13:38 Senokot 8.6 Mg Tab* PO BEDTIME PRN CONSTIPATION Vital Signs: Vital Signs Temp Pulse Resp BP Pulse Ox 98.9 F 92 18 115/66 97 10/06/19 15:00 10/06/19 15:00 10/06/19 15:00 10/06/19 15:00 10/06/19 16:14 Exam: HEENT: EOMI LUNGS: Clear bilaterally HEART: Regular rhythm ABDOMEN: Soft, +BS EXTREMITIES: Left hip wound C/D/I NEUROLOGIC: Sensation intact. Muscle strength 5/5 except LLE which is 4/5 proximally due to pain Assessment/Plan: 1. Left hip fracture: TTWB on left. PT/OT. Follow up with Dr Gonsalves 2 weeks after surgery 2. DVT Prophylaxis: Lovenox SC 3. Analgesia: Tylenol 4. Advance Directives: Full code. is surrogate decision maker 5. Nausea: Zofran 10/06/19 19:39 10/06/19 19:39 10/06/19 19:41
[2019-10-06] MEDS: Enoxaparin(*) 40 MG/0.4 ML SYR SUBCUT SCH (19:59)
[2019-10-07 04:41] LABS: ABS Basophils 0.1 10^3/ul (0-0.2); ABS Eosinophils 0.1 10^3/ul (0-0.6); ABS Lymphocytes 1.6 10^3/ul (1.0-4.8); ABS Monocytes 1.2 10^3/ul (0-0.8); ABS Neutrophils 4.9 10^3/ul (1.5-7.7); Eosinophil % 1.6 %; Hematocrit 40 % (42-52); Hemoglobin 13.1 g/dL (14.0-18.0); Lymphocyte % 19.9 %; Mean Corpuscular HGB Conc 33 g/dL (31-36); Mean Corpuscular Hemoglobin 29 pg (27-31); Mean Corpuscular Volume 87 fL (80-94); Mean Platelet Volume 6.4 fL (7.4-10.4); Platelet Count 186 10^3/uL (150-450); Red Blood Count 4.61 10^6 /uL (4.18-5.48); Red Cell Distribution Width 13 % (10-15); White Blood Count 7.9 10^3/uL (3.5-10.8)
[2019-10-07 04:59] LABS: Albumin 2.9 g/dL (3.2-5.2); BUN/Creatinine Ratio 24.7 (8-20); Calcium 8.6 mg/dL (8.6-10.3); EGFR African American 106.6 (>60); EGFR Non-African American 88.1 (>60); Potassium 4.1 mmol/L (3.5-5.0); Total Bilirubin 0.6 mg/dL (0.2-1.0); Total Protein 5.9 g/dL (6.4-8.9)
[2019-10-07] MEDS: Docusate CAP* 100 MG PO SCH ×2 (09:09→19:43)
[2019-10-07] MEDS: Ondansetron ODT TAB* 4 MG PO PRN (09:30)
--- NOTE | 2019-10-07 19:26 | PN ---
Progress Note Date of Service: 10/07/19 Note: CANDI FARRIS was visited. Therapy notes read and reviewed. Doing well without complaints. Pain well controlled without opioids. Current Medications: Active Medications Generic Name Dose Route Start Last Admin Trade Name Freq PRN Reason Stop Dose Admin Acetaminophen 650 mg 10/05/19 13:38 10/06/19 22:35 Tylenol Tab* PO 650 mg Q6H PRN Administration MILD PAIN or TEMP > 100.4 Docusate Sodium 100 mg 10/05/19 21:00 10/07/19 09:09 Colace Cap* PO 100 mg BID CELESTINO Administration Enoxaparin Sodium 40 mg 10/05/19 21:00 10/06/19 19:59 Lovenox(*) SUBCUT 40 mg Q24H CELESTINO Administration Magnesium Hydroxide 30 ml 10/05/19 13:38 Milk Of Magnesia Liq* PO Q6H PRN CONSTIPATION Ondansetron HCl 4 mg 10/06/19 13:32 10/07/19 09:30 Zofran Odt Tab* PO 4 mg Q8H PRN Administration NAUSEA/VOMITING Oxycodone/Acetaminophen 1 tab 10/05/19 13:46 Percocet 5/325 Tab* PO Q6H PRN PAIN - SEVERE Senna 2 tab 10/05/19 13:38 Senokot 8.6 Mg Tab* PO BEDTIME PRN CONSTIPATION Vital Signs: Vital Signs Temp Pulse Resp BP Pulse Ox 98.1 F 88 18 121/71 97 10/07/19 16:06 10/07/19 16:06 10/07/19 16:06 10/07/19 16:06 10/07/19 16:39 Lab Results: Laboratory Results - last 24 hr 10/07/19 10/07/19 04:25 04:25 WBC 7.9 RBC 4.61 Hgb 13.1 L Hct 40 L MCV 87 MCH 29 MCHC 33 RDW 13 Plt Count 186 MPV 6.4 L Neut % (Auto) 62.4 Lymph % (Auto) 19.9 [place] % (Auto) 15.3 Eos % (Auto) 1.6 Baso % (Auto) 0.8 Absolute Neuts (auto) 4.9 Absolute Lymphs (auto) 1.6 Absolute Monos (auto) 1.2 H Absolute Eos (auto) 0.1 Absolute Basos (auto) 0.1 Absolute Nucleated RBC 0.0 Nucleated RBC % 0.0 Sodium 136 Potassium 4.1 Chloride 102 Carbon Dioxide 28 Anion Gap 6 BUN 21 Creatinine 0.85 Est GFR ( Amer) 106.6 Est GFR (Non-Af Amer) 88.1 BUN/Creatinine Ratio 24.7 H Glucose 95 Calcium 8.6 Total Bilirubin 0.60 AST 18 ALT 25 Alkaline Phosphatase 51 Total Protein 5.9 L Albumin 2.9 L Globulin 3.0 Albumin/Globulin Ratio 1.0 Exam: HEENT: EOMI LUNGS: Clear bilaterally HEART: Regular rhythm ABDOMEN: Soft, +BS EXTREMITIES: Left hip wound C/D/I NEUROLOGIC: Sensation intact. Muscle strength 5/5 except LLE which is 4/5 proximally due to pain Assessment/Plan: 1. Left hip fracture: TTWB on left. PT/OT. Follow up with Dr Gonsalves 2 weeks after surgery 2. DVT Prophylaxis: Lovenox SC 3. Analgesia: Tylenol 4. Advance Directives: Full code. is surrogate decision maker 5. Nausea: Zofran 10/07/19 19:26
[2019-10-07] MEDS: Enoxaparin(*) 40 MG/0.4 ML SYR SUBCUT SCH (19:33)
[2019-10-07] MEDS: Acetaminophen TAB* 325 MG PO PRN (23:13)
[2019-10-08 05:01] VITALS: BP 121/63
[2019-10-08] MEDS: Docusate CAP* 100 MG PO SCH (09:01)
--- NOTE | 2019-10-08 19:48 | DS ---
CC: Dr. Elena Ho * DISCHARGE SUMMARY: DATE OF ADMISSION: 10/05/19 DATE OF DISCHARGE: 10/08/19 DISCHARGE DIAGNOSES: 1. Left hip fracture. 2. History of prostate cancer. HISTORY OF ILLNESS AND HOSPITAL COURSE: For complete history of the events leading up to his rehab stay, please see the history and physical dictated by me on 10/05/19. While on the rehab unit, the patient was stable from a medical point of view. He was maintained on Lovenox for DVT prophylaxis. He was taught how to do self injection with Lovenox. The patient did have some nausea , which was relived by Zofran. He did not take any opioid medications for pain while on the rehab unit and felt the Tylenol alone was sufficient in treating his pain. The patient was seen by both physical therapy and occupational therapy while on the rehab unit and made gains with both disciplines. With physical therapy at the time of admission, the patient required supervision for bed mobility, supervision for transfers, and supervision to ambulate 75 feet. With occupational therapy at the time of admission, the patient required setup for upper body dressing, mod assist for lower body dressing, mod assist to get his shoes and socks on particularly his left shoe, toileting and toilet transfers were supervision. By the time of discharge, the patient was independent in transfers, independent ambulating 150 feet or greater, independent going up and down a flight of stairs, independent toileting, independent dressing, independent bathing. The patient was discharged home with his on 10/08/19. DISPOSITION: Home. DISCHARGE DIET: Regular. DISCHARGE MEDICATIONS: 1. Lovenox 40 mg subcutaneously every 24 hours. 2. Tylenol 650 mg every 6 hours as needed. 3. Colace 100 mg twice daily. SERVICES AFTER DISCHARGE: Through visiting nurse service, he will have home nursing, home physical therapy and a home health aide. FOLLOWUP: Follow up with Dr. Bernardo Gonsalves in 1 week. He will also follow up with Dr. Elena Ho, his primary care doctor. He remains toe-touch weightbearing on the left. CONDITION ON DISCHARGE: Stable. TIME SPENT: Time for this discharge was approximately 50 minutes, greater than half of that was spent with the patient and his explaining post rehabilitation therapies, medications, and services. [id number]/[facility] #: [id number] [facility]
== END 2019-10-08 11:45 | disposition home health service (06) | DRG 561 ==
LOC: PMRU 12:01
PROVIDERS: ADMIT Physical Medicine & Rehabilitation; ATTEND Physical Medicine & Rehabilitation
PROC: F07Z5ZZ Bed Mobility Treatment (ICD-10-PCS; principal; 2019-10-05)
PROC: F07Z9ZZ Gait Training/Functional Ambulation Treatment (ICD-10-PCS; 2019-10-05)
PROC: F07Z8ZZ Transfer Training Treatment (ICD-10-PCS; 2019-10-05)
PROC: F07Z4ZZ Wheelchair Mobility Treatment (ICD-10-PCS; 2019-10-05)
PROC: F08Z0ZZ Bathing/Showering Techniques Treatment (ICD-10-PCS; 2019-10-05)
PROC: F08Z1ZZ Dressing Techniques Treatment (ICD-10-PCS; 2019-10-05)
PROC: F08Z3ZZ Feeding/Eating Treatment (ICD-10-PCS; 2019-10-05)
DX: S72.002D Fracture of unspecified part of neck of left femur, subsequent encounter for closed fracture with routine healing (principal); W00.2XXD Other fall from one level to another due to ice and snow, subsequent encounter; J30.9 Allergic rhinitis, unspecified; R11.0 Nausea; Z85.46 Personal history of malignant neoplasm of prostate; Z88.1 Allergy status to other antibiotic agents; Z88.2 Allergy status to sulfonamides
CPT/HCPCS: 36415; 80053; 85025; A9270-GY; J1650